=== PATIENT | female | born 1945 | race Caucasian/White ===

== ENCOUNTER 2019-06-03 18:16 | Inpatient (IN) | payer MEDICARE, BC ==
[2019-06-03 20:35] LABS: Hematocrit 30 % (35-47); Hemoglobin 10.3 g/dL (12.0-16.0); Mean Corpuscular HGB Conc 34 g/dL (31-36); Mean Corpuscular Hemoglobin 29 pg (27-31); Mean Corpuscular Volume 86 fL (80-97); Mean Platelet Volume 7.2 fL (7.4-10.4); Platelet Count 190 10^3/uL (150-450); Red Blood Count 3.53 10^6 /uL (3.70-4.87); Red Cell Distribution Width 17 % (10-15)
[2019-06-03 20:49] LABS: Urine Appearance Cloudy; Urine Bilirubin Negative (Negative); Urine Blood 1+ (Negative); Urine Color Yellow; Urine Glucose 1+(50 mg/dL) (Negative); Urine Ketones Negative (Negative); Urine Nitrite Positive (Negative); Urine Protein 1+(30 mg/dL) (Negative); Urine Specific Gravity 1.011 (1.010-1.030); Urine Urobilinogen Negative (Negative)
[2019-06-03 20:52] LABS: Albumin/Globulin Ratio 1.7 (1-3); BUN/Creatinine Ratio 13.9 (8-20); C Reactive Protein 116.37 mg/L (<8.01); Calcium 8.9 mg/dL (8.6-10.3); EGFR African American 36.4 (>60); EGFR Non-African American 30.1 (>60); Globulin 2.4 g/dL (2-4); Potassium 3.3 mmol/L (3.5-5.0); Total Bilirubin 0.4 mg/dL (0.2-1.0); Total Protein 6.4 g/dL (6.4-8.9)
[2019-06-03 20:59] LABS: Urine Appearance Cloudy; Urine Bacteria Absent (Absent); Urine Bilirubin Negative (Negative); Urine Blood 3+ (Negative); Urine Glucose Negative (Negative); Urine Ketones Negative (Negative); Urine Nitrite Negative (Negative); Urine Protein 2+(100 mg/dL) (Negative); Urine Red Blood Cell 3+(>10/hpf) (Absent); Urine Urobilinogen Negative (Negative); Urine White Blood Cell 3+(>20/hpf) (Absent)
[2019-06-03 21:00] LABS: Urine Color Red
[2019-06-03 21:00] LABS: Urine Bacteria Absent (Absent); Urine Red Blood Cell 3+(>10/hpf) (Absent); Urine Squamous Epithelial Cell Present (Absent); Urine White Blood Cell 3+(>20/hpf) (Absent)
[2019-06-03 21:32] LABS: ABS Eosinophils 0.1 10^3/ul (0-0.6); ABS Lymphocytes 0.5 10^3/ul (1.0-4.8); ABS Monocytes 0.2 10^3/ul (0-0.8); ABS Neutrophils 2.3 10^3/ul (1.5-7.7); Eosinophil % 2.7 %; Lymphocyte % 14.7 %
[2019-06-03] MEDS ORDERED: cefTRIAXone(*) 1 GM in NS 0.9% 50 ML* 50 ML IVPB ONE (22:16)
[2019-06-03] MEDS ORDERED: NS 0.9% 1000 ML** 1,000 ML IV ONE (23:53)
--- NOTE | 2019-06-04 01:08 | ED ---
GI/ HPI - HPI Summary HPI Summary: Patient complains of weakness, fatigue, confusion 3 days, fever up to 102.9 at home today. Patient has recent discharge from ICU in [place] for urosepsis. Patient has history of 2 renal tubes since 2007. Denies cough, sore throat, CP , SOB, diarrhea, abdominal pain, change in BM, vaginal symptoms. Medical history is non-Hodgkin's lymphoma, HTN, HDL, DM. Bilateral renal tubes for kidney scarring secondary to non-Hodgkin's lymphoma. Patient recently moved to [place]. Currently seeking providers for healthcare concerns. - History of Current Complaint Chief Complaint: EDGeneral Time Seen by Provider: 06/03/19 19:56 Stated Complaint: GENERAL ILLNESS PER EMS Hx Obtained From: Patient Onset/Duration: Started Days Ago Timing: Constant Severity: Moderate Current Severity: Moderate Pain Intensity: 4 Associated Signs and Symptoms: Positive: Weakness, Nausea, Vomiting, Fever, Change in Appetite, Lightheadedness - Allergy/Home Medications Allergies/Adverse Reactions: Allergies Allergy/AdvReac Type Severity Reaction Status Date / Time plastic tape AdvReac Intermediate Rash Uncoded 06/03/19 18:24 Home Medications: Home Medications Amlodipine Besylate [Amlodipine 2.5 mg tab] 2.5 mg PO DAILY 06/03/19 [History Confirmed 06/03/19] Pantoprazole Sodium 40 mg PO DAILY 06/03/19 [History Confirmed 06/03/19] Rosuvastatin Calcium 40 mg PO DAILY 06/03/19 [History Confirmed 06/03/19] Valacyclovir HCl [Valacyclovir] 500 mg PO DAILY 06/03/19 [History Confirmed 08/21] PMH/Surg Hx/FS Hx/Imm Hx Endocrine/Hematology History: Reports: Hx Diabetes, Other Endocrine/ Hematological Disorders - Follicular lymphoma/non-hodgkin lymphoma Cardiovascular History: Reports: Hx Congestive Heart Failure, Hx Coronary Artery Disease, Hx Hypercholesterolemia, Hx Hypertension, Other Cardiovascular Problems/Disorders - Hx HTN Respiratory History: Denies: Other Respiratory Problems/Disorders GI History: Comment Only: Other GI Disorders - HEMACHROMATOSIS History: Reports: Hx Kidney Stones, Hx Renal Disease - B ureters obstruction , Other Problems/Disorders - Bilat nephrostomy tubes 05/2013 Musculoskeletal History: Reports: Hx Arthritis - BACK Denies: Hx Osteoporosis Sensory History: Reports: Hx Contacts or Glasses Denies: Hx Hearing Aid Opthamlomology History: Reports: Hx Contacts or Glasses Neurological History: Denies: Other Neuro Impairments/Disorders Psychiatric History: Reports: Hx Depression - Cancer History Cancer Type, Location and Year: non-hodgkins lymphoma since 2007 Hx Chemotherapy: Yes Hx Radiation Therapy: Yes - LYMPHOMA AND BREAST CA - Surgical History Surgery Procedure, Year, and Place: bilateral urinary stent placement. APPENDECTOMY, AGE 14. HYSTERECTOMY, AGE 53. LUMPECTOMY LEFT BREAST, 1999, [facility]. 16 CYSTOS WITH STENTS, [facility] Hx Anesthesia Reactions: No Infectious Disease History: No Infectious Disease History: Denies: History Other Infectious Disease, Traveled Outside the [place] in Last 30 Days - Family History Known Family History: Positive: Non-Contributory - Social History Alcohol Use: None Substance Use Type: Reports: None Smoking Status (MU): Former Smoker Amount Used/How Often: 2/ppd Review of Systems Positive: Fever Eyes: Negative ENT: Negative Cardiovascular: Negative Respiratory: Negative Positive: Vomiting, Nausea Positive: other Musculoskeletal: Negative Skin: Negative Positive: Weakness Psychological: Normal All Other Systems Reviewed And Are Negative: Yes Physical Exam - Summary Physical Exam Summary: Patient alert and oriented. Abdomen soft nontender. Red urine in urine from right renal tube. Triage Information Reviewed: Yes Vital Signs On Initial Exam: Initial Vitals Temp Pulse Resp BP Pulse Ox 99.2 F 86 16 137/77 93 06/03/19 18:18 06/03/19 18:18 06/03/19 18:18 06/03/19 18:18 06/03/19 18:18 Vital Signs Reviewed: Yes Appearance: Positive: Well-Appearing Skin: Positive: Warm Head/Face: Positive: Normal Head/Face Inspection Eyes: Positive: Normal Neck: Positive: Supple Respiratory/Lung Sounds: Positive: Clear to Auscultation Cardiovascular: Positive: Normal Abdomen Description: Positive: Nontender Musculoskeletal: Positive: Normal Neurological: Positive: Normal Psychiatric: Positive: Normal AVPU Assessment: Alert - [place] Coma Scale Best Eye Response: 4 - Spontaneous Best Motor Response: 6 - Obeys Commands Best Verbal Response: 5 - Oriented Coma Scale Total: 15 Procedures - Sedation Patient Received Moderate/Deep Sedation with Procedure: No Diagnostics - Vital Signs Vital Signs Temp Pulse Resp BP Pulse Ox 06/03/19 18:18 99.2 F 86 16 137/77 93 - Laboratory Lab Results: Lab Results 12/08/2106/03/19 06/03/19 Range/Units 20:01 20:25 20:25 WBC 3.0 L (3.5-10.8) 10^3/uL RBC 3.53 L (3.70-4.87) 10^6 /uL Hgb 10.3 L (12.0-16.0) g/dL Hct 30 L (35-47) % MCV 86 (80-97) fL MCH 29 (27-31) pg MCHC 34 (31-36) g/dL RDW 17 H (10-15) % Plt Count 190 (150-450) 10^3/uL MPV 7.2 L (7.4-10.4) fL Neut % (Auto) 74.1 % Lymph % (Auto) 14.7 % Lamar % (Auto) 7.0 % Eos % (Auto) 2.7 % Baso % (Auto) 1.5 % Absolute Neuts (auto) 2.3 (1.5-7.7) 10^3/ul Absolute Lymphs (auto) 0.5 L (1.0-4.8) 10^3/ul Absolute Monos (auto) 0.2 (0-0.8) 10^3/ul Absolute Eos (auto) 0.1 (0-0.6) 10^3/ul Absolute Basos (auto) 0.0 (0-0.2) 10^3/ul Absolute Nucleated RBC 0.0 10^3/ul Nucleated RBC % 0.0 Sodium (135-145) mmol/L Potassium (3.5-5.0) mmol/L Chloride (101-111) mmol/L Carbon Dioxide (22-32) mmol/L Anion Gap (2-11) mmol/L BUN (6-24) mg/dL Creatinine (0.51-0.95) mg/dL Est GFR ( Amer) (>60) Est GFR (Non-Af Amer) (>60) BUN/Creatinine Ratio (8-20) Glucose (70-100) mg/dL Lactic Acid (0.5-2.0) mmol/L Calcium (8.6-10.3) mg/dL Total Bilirubin (0.2-1.0) mg/dL AST (13-39) U/L ALT (7-52) U/L Alkaline Phosphatase (34-104) U/L C-Reactive Protein (<8.01) mg/L Total Protein (6.4-8.9) g/dL Albumin (3.2-5.2) g/dL Globulin (2-4) g/dL Albumin/Globulin Ratio (1-3) Urine Color Red A Yellow Urine Appearance Cloudy Cloudy Urine pH 6.0 6.0 (5-9) Ur Specific Delta 1.010 1.011 (1.010-1.030) Urine Protein 2+(100 mg/dl) A 1+(30 mg/dl) A (Negative) Urine Ketones Negative Negative (Negative) Urine Blood 3+ A 1+ A (Negative) Urine Nitrate Negative Positive A (Negative) Urine Bilirubin Negative Negative (Negative) Urine Urobilinogen Negative Negative (Negative) Ur Leukocyte Esterase 3+ A 3+ A (Negative) Urine WBC (Auto) 3+(>20/hpf) A 3+(>20/hpf) A (Absent) Urine RBC (Auto) 3+(>10/hpf) A 3+(>10/hpf) A (Absent) Ur Squamous Epith Cells Present A (Absent) Urine Bacteria Absent Absent (Absent) Urine Yeast Present A (Absent) Urine Glucose Negative 1+(50 mg/dl) A (Negative) 06/03/19 06/03/19 Range/Units 20:25 22:15 WBC (3.5-10.8) 10^3/uL RBC (3.70-4.87) 10^6 /uL Hgb (12.0-16.0) g/dL Hct (35-47) % MCV (80-97) fL MCH (27-31) pg MCHC (31-36) g/dL RDW (10-15) % Plt Count (150-450) 10^3/uL MPV (7.4-10.4) fL Neut % (Auto) % Lymph % (Auto) % Lamar % (Auto) % Eos % (Auto) % Baso % (Auto) % Absolute Neuts (auto) (1.5-7.7) 10^3/ul Absolute Lymphs (auto) (1.0-4.8) 10^3/ul Absolute Monos (auto) (0-0.8) 10^3/ul Absolute Eos (auto) (0-0.6) 10^3/ul Absolute Basos (auto) (0-0.2) 10^3/ul Absolute Nucleated RBC 10^3/ul Nucleated RBC % Sodium 138 (135-145) mmol/L Potassium 3.3 L (3.5-5.0) mmol/L Chloride 108 (101-111) mmol/L Carbon Dioxide 19 L (22-32) mmol/L Anion Gap 11 (2-11) mmol/L BUN 23 (6-24) mg/dL Creatinine 1.66 H (0.51-0.95) mg/dL Est GFR ( Amer) 36.4 (>60) Est GFR (Non-Af Amer) 30.1 (>60) BUN/Creatinine Ratio 13.9 (8-20) Glucose 112 H (70-100) mg/dL Lactic Acid 0.6 (0.5-2.0) mmol/L Calcium 8.9 (8.6-10.3) mg/dL Total Bilirubin 0.40 (0.2-1.0) mg/dL AST 30 (13-39) U/L ALT 20 (7-52) U/L Alkaline Phosphatase 215 H (34-104) U/L C-Reactive Protein 116.37 H (<8.01) mg/L Total Protein 6.4 (6.4-8.9) g/dL Albumin 4.0 (3.2-5.2) g/dL Globulin 2.4 (2-4) g/dL Albumin/Globulin Ratio 1.7 (1-3) Urine Color Urine Appearance Urine pH (5-9) Ur Specific Delta (1.010-1.030) Urine Protein (Negative) Urine Ketones (Negative) Urine Blood (Negative) Urine Nitrate (Negative) Urine Bilirubin (Negative) Urine Urobilinogen (Negative) Ur Leukocyte Esterase (Negative) Urine WBC (Auto) (Absent) Urine RBC (Auto) (Absent) Ur Squamous Epith Cells (Absent) Urine Bacteria (Absent) Urine Yeast (Absent) Urine Glucose (Negative) Result Diagrams: 06/05/19 05:00 06/05/19 05:00 Lab Statement: Any lab studies that have been ordered have been reviewed, and results considered in the medical decision making process. GIGU Course/Dx - Course Course Of Treatment: Patient complains of weakness, fatigue, confusion 3 days, fever up to 102.9 at home today. Patient has recent discharge from ICU in [place] for urosepsis. Patient has history of 2 renal tubes since 2007. Denies cough, sore throat, CP, SOB, diarrhea, abdominal pain, change in BM, vaginal symptoms. Medical history is non-Hodgkin's lymphoma, HTN, HDL, DM. Bilateral renal tubes for kidney scarring secondary to non-Hodgkin's lymphoma. History of recurrent urosepsis. Patient recently moved to [place]. Currently seeking providers for healthcare concerns. Vital signs within normal limits. WBC 3.0. Creatinine 1.66. CRP 116. Alkaline phosphatase 215. UA positive for UTI. CT abdomen and pelvis negative for acute process. Admitted to hospitalist for UTI and history of recurrent urosepsis. - Diagnoses Provider Diagnoses: UTI (urinary tract infection) Discharge ED - Sign-Out/Discharge Documenting (check all that apply): Patient Departure - Discharge Plan Condition: Stable Disposition: ADMITTED TO [facility] - Billing Disposition and Condition Condition: STABLE Disposition: Admitted to [facility]
[2019-06-04] MEDS ORDERED: Acetaminophen TAB* 325 MG PO ONE (01:36)
[2019-06-04] MEDS: NS 0.9% 1000 ML** 1,000 ML IV SCH ×2 (06:53→16:47)
[2019-06-04] MEDS ORDERED: Potassium Chlor TAB* 10 MEQ TAB.ER PO ONE (07:01)
[2019-06-04 07:06] LABS: Hematocrit 30 % (35-47); Hemoglobin 10.2 g/dL (12.0-16.0); Mean Corpuscular HGB Conc 34 g/dL (31-36); Mean Corpuscular Hemoglobin 30 pg (27-31); Mean Corpuscular Volume 87 fL (80-97); Mean Platelet Volume 7.3 fL (7.4-10.4); Platelet Count 186 10^3/uL (150-450); Red Blood Count 3.43 10^6 /uL (3.70-4.87); Red Cell Distribution Width 17 % (10-15)
[2019-06-04 07:24] LABS: BUN/Creatinine Ratio 13.1 (8-20); Calcium 8.7 mg/dL (8.6-10.3); EGFR Non-African American 33.1 (>60); Potassium 3.1 mmol/L (3.5-5.0)
[2019-06-04 07:43] LABS: Magnesium 1.7 mg/dL (1.9-2.7)
[2019-06-04] MEDS ORDERED: Magnesium Sulfate 2 GM IV* 2 GM/50 ML BAG IVPB ONE (08:00)
[2019-06-04 08:20] LABS: ABS Basophils 0.1 10^3/ul (0-0.2); ABS Eosinophils 0.1 10^3/ul (0-0.6); ABS Lymphocytes 0.5 10^3/ul (1.0-4.8); ABS Monocytes 0.2 10^3/ul (0-0.8); ABS Neutrophils 2.2 10^3/ul (1.5-7.7); Eosinophil % 3.3 %; Lymphocyte % 16.2 %
[2019-06-04] MEDS: Pantoprazole TAB * 40 MG TAB PO SCH (08:28)
[2019-06-04] MEDS: amLODIPine TAB* 5 MG PO SCH (08:28)
[2019-06-04] MEDS: ValACYclovir (*) 500 MG TAB PO SCH (08:28)
[2019-06-04] MEDS: buPROPion SR TAB.SR* 150 MG PO SCH (08:29)
[2019-06-04] MEDS: Cetirizine* 10 MG TAB PO SCH (08:29)
[2019-06-04] MEDS: Lactobacillus Acidophilus* 1 TAB PO SCH (08:29)
[2019-06-04] MEDS: Atorvastatin* 80 MG TAB PO SCH (08:29)
[2019-06-04] MEDS: Metoprolol Succinate XL TAB* 25 MG PO SCH (08:29)
--- NOTE | 2019-06-04 08:32 | HP ---
CC: Dr. Kelly Cotter * ADMISSION HISTORY AND PHYSICAL: DATE OF ADMISSION: 06/04/19 PRIMARY CARE PHYSICIAN: Dr. Kelly Cotter, who will be replacing her older doctor Dr. Angelina Miller. CHIEF COMPLAINT: Fever and confusion. HISTORY OF PRESENT ILLNESS: This is a 73-year-old female with past medical history of non-Hodgkin lymphoma, last chemotherapy was in October 2018; history of breast cancer, status post lumpectomy, radiation, and chemo; diabetes; dyslipidemia; congestive heart failure, came in due to confusion. The patient stated that she was in her usual state of health. She also has a history of bilateral nephrostomies after she has had recurrent UTIs and failed ureteral stenting. She came in after she developed some fever today at home, which later progressed to patient having confusion, and she also noted increased bleeding from her right- sided nephrostomy tube. By the time she came into the ER, her fever subsided and so did her confusion. She was noted to have a UTI and is being admitted for concerns of UTI symptoms. She otherwise offers no other chest pain. No shortness of breath. She did have some nausea and had 1 episode of vomiting. No other abdominal pain. No constipation. No diarrhea. No numbness or tingling. She states that she gets her nephrostomy tube changed by a specialist in [place] every 4 weeks, next scheduled change is on 06/11/19. PAST MEDICAL HISTORY: As mentioned, history of non-Hodgkin lymphoma, type 2 diabetes, hypertension, dyslipidemia, and history of left breast cancer, status post lumpectomy and lymph node dissection, radiation, and chemo. Recently diagnosed shingles, on valacyclovir. PAST SURGICAL HISTORY: As mentioned, lumpectomy, had a chemo port placed on the right; appendectomy; tonsillectomy; hysterectomy. HOME MEDICATIONS: 1. Valacyclovir 500 mg oral daily. 2. Rosuvastatin 40 mg oral daily. 3. Pantoprazole 40 mg oral daily. 4. Amlodipine 2.5 mg oral daily. 5. Zyrtec 10 mg oral daily. 6. Bupropion 150 mg p.o. daily. 7. Probiotic 1 tablet oral daily. 8. Metoprolol 25 mg every morning. 9. Metformin 500 mg p.o. b.i.d. 10. Cozaar 25 mg every evening. ALLERGIES: The patient is allergic to PLASTIC TAPE, adverse reaction to FENTANYL. FAMILY HISTORY: Noncontributory. SOCIAL HISTORY: She patient quit smoking in 1999, prior to that a [id number]-afca history of smoking. Rarely drinks any alcohol. Denies any drug use. She is currently retired. Lives with her daughter who is her healthcare proxy. She has already signed a DNR/DNI in 2013 and was willing to sign an updated form today with the same exact limitations as previous. REVIEW OF SYSTEMS: A 14-point review of systems did not reveal any new information other than what is mentioned in the HPI. PHYSICAL EXAMINATION GENERAL: The patients is awake, alert, and oriented x3, did not appear to be in any acute distress. VITAL SIGNS: Temperature was recorded at 99.2; however, T-max was recorded by the ambulance at 100.4 prior to arrival to the ER. BP was noted to be 125/53, heart rate 71, saturating 99% on 2 L nasal cannula, respiratory rate 18. HEAD AND NECK: Atraumatic, normocephalic. Bilateral pupils reactive. Oral mucosa was moist. Neck supple. No jugular venous distention. LUNGS: Clear to auscultation bilaterally. No wheezing, rhonchi or rales. HEART: S1, S2. Regular rate and rhythm. ABDOMEN: Soft, nontender, nondistended. There was some substantial CVA tenderness on the left costophrenic angle compared to right. The right nephrostomy tube was showing hematuria and the left with clear urine. EXTREMITIES: No cyanosis, clubbing, or edema. DIAGNOSTIC STUDIES/LAB DATA: CBC shows leukopenia with white count of 3.0, hemoglobin and hematocrit showing some mild anemia, platelet count is normal. Comprehensive metabolic panel shows some hypokalemia with potassium of 3.3, bicarb minimally decreased at 19, creatinine elevated 1.66 which seems to be her baseline. C-reactive protein elevated at 116. Urinalysis were done twice, one from each nephrostomy tube. The right one was showing some clear-cut hematuria, but was still positive for leuk esterase. The left one was positive for both leuk esterase and nitrite and had some mild microscopic hematuria. CT of the abdomen and pelvis showed bilateral percutaneous nephrostomy tubes, minimal bilateral hydronephrosis and there is bilateral nephrolithiasis, stable colonic diverticulosis without evidence of any acute diverticulitis. New since prior exam is a significant soft tissue density and fat stranding in the retroperitoneum surrounding the aorta and iliac arteries in the presacral region , cannot exclude retroperitoneal fibrosis. IMPRESSION: This is a 73-year-old female who has a history of multiple malignancies and a history of recurrent urinary tract infections, status post nephrostomy tubes, here again with evidence of fever and altered mental status likely secondary to urinary tract infection. 1. Fever secondary to urinary tract infection. 2. Gross hematuria of the right nephrostomy. 3. Chronic kidney disease, stage 3. 4. Hypokalemia. 5. History of dyslipidemia. 6. History of hypertension. 7. History of type 2 diabetes. PLAN: 1. We will consult Urology once they are available to see if the patient would benefit from any changes in the nephrostomy tubes. In the meantime, we will continue the ceftriaxone started in the ER and follow up cultures. The patient seems to be adamant that she wants her nephrostomy tubes to be changed at [place] where she normally gets it changed, but we discussed the need for changing this nephrostomy based on the urology consultation report. In the meantime, we will continue IV hydration, restart home medications with the exception of metformin given her chronic kidney disease. We will just start the patient on insulin sliding scale and check an A1c level. 2. DVT prophylaxis with sequential compression device. 3. Code status: The patient is DNR/DNI. [id number]/[facility] #: [id number] [facility]
[2019-06-04] MEDS ORDERED: Ondansetron INJ* 2 MG/ML VIAL IV PRN (09:43)
[2019-06-04] MEDS: Acetaminophen TAB* 325 MG PO PRN ×2 (13:38→22:11)
--- OUTSIDE RECORDS SUMMARY | 2019-06-04 16:31 | XMS REPORT | Continuity of Care Document ---
:1945 External Reference #:[id number] Author Name Breanne Camargo M.D. (transmitted by agent of provider Anna Love) Address [address] [place] [address] Care Team Providers Name Role Phone Angelina Miller MD - Family Care Team Information Communications Director Medicine Problems Active Problems Provider Date Mixed hyperlipidemia Breanne Camargo M.D. Onset: 09/04/2018 Cardiomyopathy, unspecified Breanne Camargo M.D. Onset: 05/26/2015 Edema Breanne Camargo M.D. Onset: 05/26/2015 Hemochromatosis Breanne Camargo M.D. Onset: 06/17/2014 Type 2 diabetes mellitus Breanne Camargo M.D. Onset: 06/17/2014 Essential hypertension Breanne Camargo M.D. 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 Onset: 06/17/2014 granulomas Social History Type Date Description Comments Sex Unknown Tobacco Use Start: Unknown End: Former Cigarette Smoker Unknown Smoking Status Reviewed: 05/27/19 Former Cigarette Smoker ETOH Use Denies alcohol use Tobacco Use Start: Unknown End: Patient is a former quit in 1999, Unknown smoker smoked 2 ppd x 30 years Recreational Drug Use Denies Drug Use Exercise Type/Frequency Does not exercise Allergies, Adverse Reactions, Alerts Active Allergies Reaction Severity Comments Date NKDA 06/17/2014 Adhesive Tape 05/24/2016 Inactive Allergies Atenolol FATIGUE 09/04/2012 Medications Active Medications SIG Qnty Indications Ordering Date Provider Vascepa 1 by mouth twice 180caps Breanne Camargo, 09/10/2018 0.5gm Capsules a day M.D. Lidocaine apply to affected 60gm Breanne Camargo, 09/04/2018 4% Cream areas as directed M.D. via physician Glipizide take one tablet 90tabs Breanne Rosaer, 09/03/2018 5mg Tablets by mouth twice a M.D. day Amlodipine Besylate 1 by mouth every 90tabs R06.00 Breanne Ashsher, 2015 day M.D. 2.5mg Tablets Losartan Potassium 1 by mouth every 90tabs Anupam Cano, 06/24/2016 50mg day DO FACC Tablets Metoprolol Succinate 1 by mouth every 90tabs Breanne Ashsher, 09/20/2012 ER day, generic form M.D. 25mg Tablets ER 24HR as requested by the patient. Metformin HCL 1/2 by mouth Unknown 500mg/5ML twice a day Solution Bupropion HCL ER (SR) 1 by mouth once Unknown daily 150mg Tablets ER 12HR Pravastatin Sodium 1 tablet daily at 90tabs Breanne Ashsher, 40mg bedtime M.D. Tablets Valacyclovir HCL 1 by mouth every Unknown 500mg day Tablets Ibuprofen 3 by mouth twice Unknown 200mg per day Immunizations Description No Information Available Vital Signs Date Vital Result Comment 05/27/2019 1:58pm Height 64.5 inches 5'4.50" Weight 160.00 lb with shoes Heart Rate 80 /min BP Systolic Sitting 120 mmHg Ra BP Diastolic Sitting 66 mmHg Ra BP Systolic Standing 122 mmHg Ra BP Diastolic Standing 62 mmHg Ra BMI (Body Mass Index) 27.0 kg/m2 Ejection Fraction 45-50% Echo 09/05/18 09/04/2018 10:54am Height 64.5 inches 5'4.50" Weight 171.00 lb no shoes Heart Rate 80 /min BP Systolic Sitting 128 mmHg lue reg cuff BP Diastolic Sitting 64 mmHg lue reg cuff BP Systolic Standing 124 mmHg lue reg cuff BP Diastolic Standing 64 mmHg lue reg cuff Respiratory Rate 22 /min BMI (Body Mass Index) 28.9 kg/m2 Ejection Fraction 50-55% Results Test Acquired Date Facility Test Result H/L Range Note Laboratory test 05/27/2019 [facility] TSH <pending> finding [address] ([place] [address] [employer] [facility]) [phone] Procedures Date Code Description Status 05/27/2019 66158 EKG Tracing & Interpretation Completed Medical Devices Description No Information Available Encounters Description No Information Available Assessments Date Code Description Provider 05/27/2019 Z01.810 Encounter for preprocedural cardiovascular Breanne Camargo M.D. examination 05/27/2019 I42.8 Other cardiomyopathies Breanne Camargo M.D. 05/27/2019 I10 Essential (primary) hypertension Breanne Camargo M.D. 05/27/2019 E83.119 Hemochromatosis, unspecified Breanne Camargo M.D. 05/27/2019 E11.8 Type 2 diabetes mellitus with unspecified Breanne Camargo M.D. complications 05/27/2019 E78.2 Mixed hyperlipidemia Breanne Camargo M.D. 05/27/2019 R53.83 Other fatigue Breanne Camargo M.D. 05/27/2019 R31.0 Gross hematuria Breanne Camargo M.D. Plan of Treatment Future Appointment(s):06/03/2019 2:30 pm - Traveling ECHO 1 at [facility]05/27/2019 - Breanne Camargo M.D.Z01.810 Encounter for preprocedural cardiovascular examinationComments:Cataract sx is low risk, you are in normal rhythmFrom a cardiac standpoint you are in good shape forthis sx.I42.8 Other cardiomyopathiesNew Orders:Echocardiogram, Ordered: Follow up:May, We will call with results. OV 3-6 months and PRN (travels).I10 Essential (primary) hypertensionComments:Well controlled on current meds, continue.E83.119 Hemochromatosis, unspecifiedComments:Aware your current oncologist does not think you have this.E11.8 Type 2 diabetes mellitus with unspecified tuoonngorbluzR85.2 Mixed hyperlipidemiaComments:I agree with the recommendation to change Pravastatin to Rosuvastatin, OK to start now.R53.83 Other fatigueComments:Follow up with primary, could be from recent sepsis.Checking labs.Follow up:We will call with results.R31.0 Gross hematuriaComments:See urology Functional Status Description No Information Available Mental Status Description No Information Available Referrals Description No Information Available
--- OUTSIDE RECORDS SUMMARY | 2019-06-04 16:31 | XMS REPORT | Continuity of Care Document ---
:1945 External Reference #:[id number] Author Name Robert Brennan M.D. Address [address] [place] [address] Care Team Providers Name Role Phone Angelina Miller M.D. - Family Medicine Care Team Information Service Order Dispatcher [phone] Breanne Camargo M.D. - Cardiovascular Care Team Information Service Order Dispatcher [phone] Disease Problems Active Problems Provider Date Diabetes mellitus Robert Brennan M.D. Onset: 05/28/2019 Hypertensive disorder Robert Brennan M.D. Onset: 05/28/2019 Hypercholesterolemia Robert Brennan M.D. Onset: 05/28/2019 Acute urinary tract infection Robert Brennan M.D. Onset: 05/28/2019 Sepsis Robert Brennan M.D. Onset: 05/28/2019 Non-Hodgkin's lymphoma (clinical) Robert Brennan M.D. Onset: 05/28/2019 Neutropenia Robert Brennan M.D. Onset: 05/28/2019 Cough Robert Brennan M.D. 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 Onset: 05/28/2019 Combined form of senile cataract Robert Brennan M.D. Onset: 05/28/2019 Social History Type Date Description Comments Sex Unknown ETOH Use Occasionally consumes alcohol Tobacco Use Start: Unknown End: Patient is a former stopped in 1999 Unknown smoker Recreational Drug Use Denies Drug Use Smoking Status Reviewed: 05/28/19 Patient is a former stopped in 1999 smoker Allergies, Adverse Reactions, Alerts Active Allergies Reaction Severity Comments Date Tape 05/28/2019 Medications Active Medications SIG Qnty Indications Ordering Provider Date Erythromycin apply to all four 1Tube H01.021 Robert Brennan, 05/28/2019 5mg/GM lids at bedtime M.D. Ointment for 2 weeks Glipizide Unknown 10mg Tablets Metformin HCL Unknown 500mg Tablets Pravastatin Sodium Unknown 40mg Tablets Valacyclovir HCL Unknown 500mg Tablets Amlodipine Besylate Unknown 2.5mg Tablets Losartan Potassium Unknown 50mg Tablets Immunizations Description No Information Available Vital Signs Description No Information Available Results Description No Information Available Procedures Description No Information Available Medical Devices Description No Information Available Encounters Description No Information Available Assessments Date Code Description Provider 05/28/2019 H25.813 Combined forms of age-related cataract, Robert Brennan M.D. bilateral 05/28/2019 E11.9 Type 2 diabetes mellitus without Robert Brennan M.D. complications 05/28/2019 H53.022 Refractive amblyopia, left eye Robert Brennan M.D. 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 05/28/2019 H01.024 Squamous blepharitis left upper eyelid Robert Brennan M.D. 05/28/2019 H01.022 Squamous blepharitis right lower eyelid Robert Brennan M.D. 05/28/2019 H01.025 Squamous blepharitis left lower eyelid Robert Brennan M.D. Plan of Treatment 05/28/2019 - Robert Brennan M.D.H25.813 Combined forms of age-related cataract , bilateralComments:Smoking can increase the risk of developing or worsening any eye related disease, as well as affect your overall health. If you are a smoker, we strongly recommend that you quit.If you are not a smoker, we strongly recommend that you do not start. You have been diagnosed with cataracts. They are limiting your vision, and I am unable to improve you with new glasses. Our next step is to schedule Cataract surgery and all necessary appointments, which Jaqueline will do for you. We recommend that you write down any questions you may have and bring them to your preoperative appointment so that Dr. Stokes answer them for you. If you have any questions or concerns, you can reach Jaqueline Peña at .Follow up:For preop exam before surgery.E11.9 Type 2 diabetes mellitus without complicationsComments:You have diabetes. I do not detect any changes in both of your retinas from diabetes at this time. Proper control of your diabetes is important for the health of your eyes. Changes in your eyes from diabetes can happen without symptoms, so it is important that you have your eyes examined. Dr. Brennan has sent a report to your primary care doctor, letting them know there is no damage from the Diabetes in your eyes.H53.022 Refractive amblyopia, left eyeH01.021 Squamous blepharitis right upper eyelidNew Medication:Erythromycin 5 mg/GM - apply to all four lids at bedtime for 2 weeksComments:Dr. Brennan has diagnosed you with Blepharitis. This is common condition and can be managed with a few simple steps each day. -Use a hot compress 1-2 times per day, 10-15 minutes at a time, to help melt down the oils in your eyelids that have hardened. Each time you blink, the glands in the lids are supposed to release a protective oil layer over your tears to help them from evaporating. It is common with Blepharitis that the natural bacteria produced overgrows and hardens in the glands, which does not allow a protective oil layer to coat your tears.-Use artificial tear drops frequently throughout the day. Because the tear film is evaporating quicker than normal, you will need to supplement with tear drops to keep the ocular surface comfortable. -Use a lid scrub to remove debris from the lashes. [employer] is a brand we recommend to use.-Examine your environment. The weather for the area we live in often goes from one extreme to the other, forcing us to use air conditioners and heaters often. This can dry the air in the house out, so sometimes using a humidifier can help your ocular surface as well.H01.024 Squamous blepharitis left upper twqimyI46.022 Squamous blepharitis right lower piyrvbP63.025 Squamous blepharitis left lower eyelid Functional Status Description No Information Available Mental Status Description No Information Available Referrals Description No Information Available
[2019-06-04] MEDS: Losartan TAB* 25 MG PO SCH (16:55)
--- NOTE | 2019-06-04 19:09 | PN ---
Subjective Date of Service: 06/04/19 Interval History: Patient was having fever yesterday of 102 at home. She has 2 nephrostomy tube and changes it every 4 weeks. Since last 3 weeks she noticed red color urine in her right bag and dark color in left. She denies abd pain, nausea and vomiting. She has some bodyache at present. Objective Active Medications: Acetaminophen (Tylenol Tab*) 650 mg PO Q6H PRN PRN Reason: PAIN - MILD Last Admin: 06/04/19 13:38 Dose: 650 mg Amlodipine Besylate (Norvasc Tab*) 2.5 mg PO DAILY [facility] Last Admin: 06/04/19 08:28 Dose: 2.5 mg Atorvastatin Calcium (Lipitor*) 80 mg PO DAILY [facility] Last Admin: 06/04/19 08:29 Dose: 80 mg Bupropion HCl (Wellbutrin Sr Tab*) 150 mg PO QAM [facility] Last Admin: 06/04/19 08:29 Dose: 150 mg Cetirizine HCl (Zyrtec*) 10 mg PO DAILY [facility] Last Admin: 06/04/19 08:29 Dose: 10 mg Sodium Chloride (Ns 0.9% 1000 Ml) 1,000 mls @ 100 mls/hr IV PER RATE [facility] Last Admin: 06/04/19 16:47 Dose: 100 mls/hr Ceftriaxone Sodium 1 gm/ (Sodium Chloride) 50 mls @ 100 mls/hr IVPB Q24H [facility] Lactobacillus Rhamnosus (Lactobacillus Acidophilus*) 1 tab PO DAILY [facility] Last Admin: 06/04/19 08:29 Dose: 1 tab Losartan Potassium (Cozaar Tab*) 25 mg PO QPM [facility] Last Admin: 06/04/19 16:55 Dose: 25 mg Metoprolol Succinate (Toprol Xl Tab*) 25 mg PO QAM [facility] Last Admin: 06/04/19 08:29 Dose: 25 mg Ondansetron HCl (Zofran Inj*) 4 mg IV Q6H PRN PRN Reason: NAUSEA Pantoprazole Sodium (Protonix Tab*) 40 mg PO DAILY [facility] Last Admin: 06/04/19 08:28 Dose: 40 mg Valacyclovir HCl (Valtrex 500 Mg (*)) 500 mg PO DAILY [facility]; Protocol Last Admin: 06/04/19 08:28 Dose: 500 mg Vital Signs - 8 hr 06/04/19 06/04/19 06/04/19 11:15 11:28 15:15 Temperature 97.4 F 99.8 F 99.5 F Pulse Rate 85 78 73 Respiratory 20 20 20 Rate Blood Pressure 124/83 119/60 112/44 (mmHg) O2 Sat by Pulse 98 97 94 Oximetry Oxygen Devices in Use Now: Nasal Cannula Exam: Patient is lying on a bed in supine position and is not in acute dstress. HEENT: Normocephalic and atraumatic. Sclera anicteric. EOMI. PERRLA. Neck: No lymphadenopathy and enlarged thyroid. NO JVD elevation. Lungs: Good respiratory effort and chest expansion. Clear with no added sound. Heart: Normal in rate and rhythm. S1/S2 heard with no murmur, rubs or gallops. Abdomen: Soft, nondistended and nontender. Normal BS heard. 2 nephrostomy tube on bilateral flank. left side was clear urine and right was red. NO CVA tenderness noted Extremities; No swelling, cyanosis or clubbing Neuro: Alert, oriented and coperative. CN intact. Motor nomral and sensation intact. Result Diagrams: 06/04/19 06:55 06/04/19 06:55 Additional Lab and Data: Lab Results 06/03/19 06/03/19 06/03/19 Range/Units 20:01 20:25 20:25 WBC 3.0 L (3.5-10.8) 10^3/uL RBC 3.53 L (3.70-4.87) 10^6 /uL Hgb 10.3 L (12.0-16.0) g/dL Hct 30 L (35-47) % MCV 86 (80-97) fL MCH 29 (27-31) pg MCHC 34 (31-36) g/dL RDW 17 H (10-15) % Plt Count 190 (150-450) 10^3/uL MPV 7.2 L (7.4-10.4) fL Neut % (Auto) 74.1 % Lymph % (Auto) 14.7 % [place] % (Auto) 7.0 % Eos % (Auto) 2.7 % Baso % (Auto) 1.5 % Absolute Neuts (auto) 2.3 (1.5-7.7) 10^3/ul Absolute Lymphs (auto) 0.5 L (1.0-4.8) 10^3/ul Absolute Monos (auto) 0.2 (0-0.8) 10^3/ul Absolute Eos (auto) 0.1 (0-0.6) 10^3/ul Absolute Basos (auto) 0.0 (0-0.2) 10^3/ul Absolute Nucleated RBC 0.0 10^3/ul Nucleated RBC % 0.0 Sodium (135-145) mmol/L Potassium (3.5-5.0) mmol/L Chloride (101-111) mmol/L Carbon Dioxide (22-32) mmol/L Anion Gap (2-11) mmol/L BUN (6-24) mg/dL Creatinine (0.51-0.95) mg/dL Est GFR ( Amer) (>60) Est GFR (Non-Af Amer) (>60) BUN/Creatinine Ratio (8-20) Glucose (70-100) mg/dL Lactic Acid (0.5-2.0) mmol/L Calcium (8.6-10.3) mg/dL Total Bilirubin (0.2-1.0) mg/dL AST (13-39) U/L ALT (7-52) U/L Alkaline Phosphatase (34-104) U/L C-Reactive Protein (<8.01) mg/L Total Protein (6.4-8.9) g/dL Albumin (3.2-5.2) g/dL Globulin (2-4) g/dL Albumin/Globulin Ratio (1-3) Urine Color Red A Yellow Urine Appearance Cloudy Cloudy Urine pH 6.0 6.0 (5-9) Ur Specific [place] 1.010 1.011 (1.010-1.030) Urine Protein 2+(100 mg/dl) A 1+(30 mg/dl) A (Negative) Urine Ketones Negative Negative (Negative) Urine Blood 3+ A 1+ A (Negative) Urine Nitrate Negative Positive A (Negative) Urine Bilirubin Negative Negative (Negative) Urine Urobilinogen Negative Negative (Negative) Ur Leukocyte Esterase 3+ A 3+ A (Negative) Urine WBC (Auto) 3+(>20/hpf) A 3+(>20/hpf) A (Absent) Urine RBC (Auto) 3+(>10/hpf) A 3+(>10/hpf) A (Absent) Ur Squamous Epith Cells Present A (Absent) Urine Bacteria Absent Absent (Absent) Urine Yeast Present A (Absent) Urine Glucose Negative 1+(50 mg/dl) A (Negative) 06/03/19 06/03/19 Range/Units 20:25 22:15 WBC (3.5-10.8) 10^3/uL RBC (3.70-4.87) 10^6 /uL Hgb (12.0-16.0) g/dL Hct (35-47) % MCV (80-97) fL MCH (27-31) pg MCHC (31-36) g/dL RDW (10-15) % Plt Count (150-450) 10^3/uL MPV (7.4-10.4) fL Neut % (Auto) % Lymph % (Auto) % [place] % (Auto) % Eos % (Auto) % Baso % (Auto) % Absolute Neuts (auto) (1.5-7.7) 10^3/ul Absolute Lymphs (auto) (1.0-4.8) 10^3/ul Absolute Monos (auto) (0-0.8) 10^3/ul Absolute Eos (auto) (0-0.6) 10^3/ul Absolute Basos (auto) (0-0.2) 10^3/ul Absolute Nucleated RBC 10^3/ul Nucleated RBC % Sodium 138 (135-145) mmol/L Potassium 3.3 L (3.5-5.0) mmol/L Chloride 108 (101-111) mmol/L Carbon Dioxide 19 L (22-32) mmol/L Anion Gap 11 (2-11) mmol/L BUN 23 (6-24) mg/dL Creatinine 1.66 H (0.51-0.95) mg/dL Est GFR ( Amer) 36.4 (>60) Est GFR (Non-Af Amer) 30.1 (>60) BUN/Creatinine Ratio 13.9 (8-20) Glucose 112 H (70-100) mg/dL Lactic Acid 0.6 (0.5-2.0) mmol/L Calcium 8.9 (8.6-10.3) mg/dL Total Bilirubin 0.40 (0.2-1.0) mg/dL AST 30 (13-39) U/L ALT 20 (7-52) U/L Alkaline Phosphatase 215 H (34-104) U/L C-Reactive Protein 116.37 H (<8.01) mg/L Total Protein 6.4 (6.4-8.9) g/dL Albumin 4.0 (3.2-5.2) g/dL Globulin 2.4 (2-4) g/dL Albumin/Globulin Ratio 1.7 (1-3) Urine Color Urine Appearance Urine pH (5-9) Ur Specific [place] (1.010-1.030) Urine Protein (Negative) Urine Ketones (Negative) Urine Blood (Negative) Urine Nitrate (Negative) Urine Bilirubin (Negative) Urine Urobilinogen (Negative) Ur Leukocyte Esterase (Negative) Urine WBC (Auto) (Absent) Urine RBC (Auto) (Absent) Ur Squamous Epith Cells (Absent) Urine Bacteria (Absent) Urine Yeast (Absent) Urine Glucose (Negative) Assess/Plan/Problems-Billing Assessment: 73 y/o F with h/o NHL s/p chemo s/p b/l nephrostomy tube, left breast Ca s/p radiation, recurrent UTI presents with fever and altered mental status. FOund to have abnormal urinalysis-suspected UTI. On ceftriaxone iv(day 2 on 06/04) - Patient Problems (1) Altered mental status Current Visit: Yes Status: Acute Code(s): R41.82 - ALTERED MENTAL STATUS, UNSPECIFIED SNOMED Code(s): 114151356 Comment: -resolved -secondary to UTI -on Iv ceftriaxone(day 2 on 06/04) (2) UTI (urinary tract infection) Current Visit: Yes Status: Acute Comment: -has bilateral nephrostomy tubes -follows in [place]; was visiting her daughter here. 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) -On ceftriaxone -improving -pending urine culture (3) Hypertension Current Visit: Yes Status: Acute Code(s): I10 - ESSENTIAL (PRIMARY) HYPERTENSION SNOMED Code(s): 16724237 Comment: -Continue amlodipine, losartan and metoprolol (4) Diabetes Current Visit: Yes Status: Acute Code(s): E11.9 - TYPE 2 DIABETES MELLITUS WITHOUT COMPLICATIONS SNOMED Code(s): 78812365 Comment: -will check her glucose tomorrow and continue metformin from tomorrow (5) Leukocytopenia Current Visit: Yes Status: Acute Code(s): D72.819 - DECREASED WHITE BLOOD CELL COUNT, UNSPECIFIED SNOMED Code(s): 32316164 Comment: -has chronic low WBC -recently hospitalized in [facility] in [place] and her WBC was 1.4 -ANC is 2.2 -s/p chemotherapy for NHL (6) Shingles Current Visit: Yes Status: Acute Code(s): B02.9 - ZOSTER WITHOUT COMPLICATIONS SNOMED Code(s): 7282707 Comment: -recently had shingles -continue valacyclovir (7) DVT prophylaxis Current Visit: Yes Status: Acute Code(s): Z29.9 - ENCOUNTER FOR PROPHYLACTIC MEASURES, UNSPECIFIED SNOMED Code(s): 665326358 Comment: -on scd (8) DNR (do not resuscitate) Current Visit: Yes Status: Acute Status and Disposition: inpatient Attending: Maris Cortez Attestation Documenting Resident: Jemal Goodwin Supervising Physician: Maris Cortez Attestation: This service has been performed in part by a resident under the direction of a teaching physician.I, Maris Cortez, performed the service, or was physically present during the critical, or castillo portions of the service, furnished by the resident. I participated in the management of the patient.
[2019-06-04] MEDS ORDERED: cefTRIAXone(*) 1 GM in NS 0.9% 50 ML* 50 ML IVPB SCH (21:00)
[2019-06-05] MEDS: NS 0.9% 1000 ML** 1,000 ML IV SCH ×2 (03:42→14:11)
[2019-06-05 05:11] LABS: Hematocrit 28 % (35-47); Hemoglobin 9.4 g/dL (12.0-16.0); Mean Corpuscular HGB Conc 34 g/dL (31-36); Mean Corpuscular Hemoglobin 29 pg (27-31); Mean Corpuscular Volume 87 fL (80-97); Platelet Count 162 10^3/uL (150-450); Red Cell Distribution Width 17 % (10-15); White Blood Count 2.2 10^3/uL (3.5-10.8)
[2019-06-05 05:32] LABS: BUN/Creatinine Ratio 11.7 (8-20); Calcium 8.4 mg/dL (8.6-10.3); EGFR African American 42.6 (>60); EGFR Non-African American 35.2 (>60); Potassium 3.3 mmol/L (3.5-5.0)
[2019-06-05] MEDS ORDERED: Potassium Chlor TAB* 20 MEQ TAB.ER PO ONE (06:58)
--- NOTE | 2019-06-05 07:27 | PN ---
Subjective Date of Service: 06/05/19 Interval History: HD 3 on 06/05 No acute overnight events vitals stable patient says she feels good. Denies abdominal pain, nausea and vomiting. 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 left side draining light yellow. Objective Active Medications: Acetaminophen (Tylenol Tab*) 650 mg PO Q6H PRN PRN Reason: PAIN - MILD Last Admin: 06/04/19 22:11 Dose: 650 mg Amlodipine Besylate (Norvasc Tab*) 2.5 mg PO DAILY [facility] Last Admin: 06/04/19 08:28 Dose: 2.5 mg Atorvastatin Calcium (Lipitor*) 80 mg PO DAILY [facility] Last Admin: 06/04/19 08:29 Dose: 80 mg Bupropion HCl (Wellbutrin Sr Tab*) 150 mg PO QAM [facility] Last Admin: 06/04/19 08:29 Dose: 150 mg Cetirizine HCl (Zyrtec*) 10 mg PO DAILY [facility] Last Admin: 06/04/19 08:29 Dose: 10 mg Sodium Chloride (Ns 0.9% 1000 Ml) 1,000 mls @ 100 mls/hr IV PER RATE [facility] Last Admin: 06/05/19 03:42 Dose: 100 mls/hr Ceftriaxone Sodium 1 gm/ (Sodium Chloride) 50 mls @ 100 mls/hr IVPB Q24H [facility] Last Admin: 06/04/19 20:51 Dose: 100 mls/hr Lactobacillus Rhamnosus (Lactobacillus Acidophilus*) 1 tab PO DAILY [facility] Last Admin: 06/04/19 08:29 Dose: 1 tab Losartan Potassium (Cozaar Tab*) 25 mg PO QPM [facility] Last Admin: 06/04/19 16:55 Dose: 25 mg Metoprolol Succinate (Toprol Xl Tab*) 25 mg PO QAM [facility] Last Admin: 06/04/19 08:29 Dose: 25 mg Ondansetron HCl (Zofran Inj*) 4 mg IV Q6H PRN PRN Reason: NAUSEA Pantoprazole Sodium (Protonix Tab*) 40 mg PO DAILY [facility] Last Admin: 06/04/19 08:28 Dose: 40 mg Valacyclovir HCl (Valtrex 500 Mg (*)) 500 mg PO DAILY [facility]; Protocol Last Admin: 06/04/19 08:28 Dose: 500 mg Vital Signs - 8 hr 06/05/19 06/05/19 00:08 03:28 Temperature 99.9 F 97.1 F Pulse Rate 71 68 Respiratory 16 16 Rate Blood Pressure 118/36 131/42 (mmHg) O2 Sat by Pulse 96 95 Oximetry Oxygen Devices in Use Now: Nasal Cannula Exam: Patient is lying on a bed in supine position and is not in acute dstress. HEENT: Normocephalic and atraumatic. Sclera anicteric. EOMI. PERRLA. Neck: No lymphadenopathy and enlarged thyroid. NO JVD elevation. Lungs: Good respiratory effort and chest expansion. Clear with no added sound. Heart: Normal in rate and rhythm. S1/S2 heard with no murmur, rubs or gallops. Abdomen: Soft, nondistended and nontender. Normal BS heard. 2 nephrostomy tube on bilateral flank. left side was clear urine and right was red- improving. NO CVA tenderness noted Extremities; No swelling, cyanosis or clubbing Neuro: Alert, oriented and coperative. CN intact. Motor nomral and sensation intact. Result Diagrams: 06/05/19 05:00 06/05/19 05:00 Additional Lab and Data: Lab Results 06/03/19 06/03/19 06/03/19 Range/Units 20:01 20:25 20:25 WBC 3.0 L (3.5-10.8) 10^3/uL RBC 3.53 L (3.70-4.87) 10^6 /uL Hgb 10.3 L (12.0-16.0) g/dL Hct 30 L (35-47) % MCV 86 (80-97) fL MCH 29 (27-31) pg MCHC 34 (31-36) g/dL RDW 17 H (10-15) % Plt Count 190 (150-450) 10^3/uL MPV 7.2 L (7.4-10.4) fL Neut % (Auto) 74.1 % Lymph % (Auto) 14.7 % [place] % (Auto) 7.0 % Eos % (Auto) 2.7 % Baso % (Auto) 1.5 % Absolute Neuts (auto) 2.3 (1.5-7.7) 10^3/ul Absolute Lymphs (auto) 0.5 L (1.0-4.8) 10^3/ul Absolute Monos (auto) 0.2 (0-0.8) 10^3/ul Absolute Eos (auto) 0.1 (0-0.6) 10^3/ul Absolute Basos (auto) 0.0 (0-0.2) 10^3/ul Absolute Nucleated RBC 0.0 10^3/ul Nucleated RBC % 0.0 Sodium (135-145) mmol/L Potassium (3.5-5.0) mmol/L Chloride (101-111) mmol/L Carbon Dioxide (22-32) mmol/L Anion Gap (2-11) mmol/L BUN (6-24) mg/dL Creatinine (0.51-0.95) mg/dL Est GFR ( Amer) (>60) Est GFR (Non-Af Amer) (>60) BUN/Creatinine Ratio (8-20) Glucose (70-100) mg/dL Lactic Acid (0.5-2.0) mmol/L Calcium (8.6-10.3) mg/dL Total Bilirubin (0.2-1.0) mg/dL AST (13-39) U/L ALT (7-52) U/L Alkaline Phosphatase (34-104) U/L C-Reactive Protein (<8.01) mg/L Total Protein (6.4-8.9) g/dL Albumin (3.2-5.2) g/dL Globulin (2-4) g/dL Albumin/Globulin Ratio (1-3) Urine Color Red A Yellow Urine Appearance Cloudy Cloudy Urine pH 6.0 6.0 (5-9) Ur Specific [place] 1.010 1.011 (1.010-1.030) Urine Protein 2+(100 mg/dl) A 1+(30 mg/dl) A (Negative) Urine Ketones Negative Negative (Negative) Urine Blood 3+ A 1+ A (Negative) Urine Nitrate Negative Positive A (Negative) Urine Bilirubin Negative Negative (Negative) Urine Urobilinogen Negative Negative (Negative) Ur Leukocyte Esterase 3+ A 3+ A (Negative) Urine WBC (Auto) 3+(>20/hpf) A 3+(>20/hpf) A (Absent) Urine RBC (Auto) 3+(>10/hpf) A 3+(>10/hpf) A (Absent) Ur Squamous Epith Cells Present A (Absent) Urine Bacteria Absent Absent (Absent) Urine Yeast Present A (Absent) Urine Glucose Negative 1+(50 mg/dl) A (Negative) 06/03/19 06/03/19 Range/Units 20:25 22:15 WBC (3.5-10.8) 10^3/uL RBC (3.70-4.87) 10^6 /uL Hgb (12.0-16.0) g/dL Hct (35-47) % MCV (80-97) fL MCH (27-31) pg MCHC (31-36) g/dL RDW (10-15) % Plt Count (150-450) 10^3/uL MPV (7.4-10.4) fL Neut % (Auto) % Lymph % (Auto) % [place] % (Auto) % Eos % (Auto) % Baso % (Auto) % Absolute Neuts (auto) (1.5-7.7) 10^3/ul Absolute Lymphs (auto) (1.0-4.8) 10^3/ul Absolute Monos (auto) (0-0.8) 10^3/ul Absolute Eos (auto) (0-0.6) 10^3/ul Absolute Basos (auto) (0-0.2) 10^3/ul Absolute Nucleated RBC 10^3/ul Nucleated RBC % Sodium 138 (135-145) mmol/L Potassium 3.3 L (3.5-5.0) mmol/L Chloride 108 (101-111) mmol/L Carbon Dioxide 19 L (22-32) mmol/L Anion Gap 11 (2-11) mmol/L BUN 23 (6-24) mg/dL Creatinine 1.66 H (0.51-0.95) mg/dL Est GFR ( Amer) 36.4 (>60) Est GFR (Non-Af Amer) 30.1 (>60) BUN/Creatinine Ratio 13.9 (8-20) Glucose 112 H (70-100) mg/dL Lactic Acid 0.6 (0.5-2.0) mmol/L Calcium 8.9 (8.6-10.3) mg/dL Total Bilirubin 0.40 (0.2-1.0) mg/dL AST 30 (13-39) U/L ALT 20 (7-52) U/L Alkaline Phosphatase 215 H (34-104) U/L C-Reactive Protein 116.37 H (<8.01) mg/L Total Protein 6.4 (6.4-8.9) g/dL Albumin 4.0 (3.2-5.2) g/dL Globulin 2.4 (2-4) g/dL Albumin/Globulin Ratio 1.7 (1-3) Urine Color Urine Appearance Urine pH (5-9) Ur Specific [place] (1.010-1.030) Urine Protein (Negative) Urine Ketones (Negative) Urine Blood (Negative) Urine Nitrate (Negative) Urine Bilirubin (Negative) Urine Urobilinogen (Negative) Ur Leukocyte Esterase (Negative) Urine WBC (Auto) (Absent) Urine RBC (Auto) (Absent) Ur Squamous Epith Cells (Absent) Urine Bacteria (Absent) Urine Yeast (Absent) Urine Glucose (Negative) Assess/Plan/Problems-Billing Assessment: 73 y/o F with h/o NHL s/p chemo s/p b/l nephrostomy tube, left breast Ca s/p radiation, recurrent UTI presents with fever and altered mental status. FOund to have abnormal urinalysis, Urine culture positive for pseudomonas. Switched to cefepime(day 1 on 06/05). - Patient Problems (1) Altered mental status Current Visit: Yes Status: Acute Code(s): R41.82 - ALTERED MENTAL STATUS, UNSPECIFIED SNOMED Code(s): 223814868 Comment: -resolved -secondary to UTI -switched to cefepime(day 1 on 06/05) (2) UTI (urinary tract infection) Current Visit: Yes Status: Acute Comment: -has bilateral nephrostomy tubes -follows in [place]; was visiting her daughter here. 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) -Urine culture showing pseudomonas- No sensitivity yet, based on previous record pseudo was sensitive to cefepime, zosyn and meropenem -Switched to cefepime(day 1 on 06/05) -improving (3) Hypertension Current Visit: Yes Status: Acute Code(s): I10 - ESSENTIAL (PRIMARY) HYPERTENSION SNOMED Code(s): 83581437 Comment: -Continue amlodipine, losartan -Metoprolol decreased to 12.5 mg given BP being on soft side (4) Diabetes Current Visit: Yes Status: Acute Code(s): E11.9 - TYPE 2 DIABETES MELLITUS WITHOUT COMPLICATIONS SNOMED Code(s): 94706596 Comment: -Continue metformin (5) Leukocytopenia Current Visit: Yes Status: Acute Code(s): D72.819 - DECREASED WHITE BLOOD CELL COUNT, UNSPECIFIED SNOMED Code(s): 50622377 Comment: -has chronic low WBC -recently hospitalized in [facility] in [place] and her WBC was 1.4 -ANC is 2.2 -s/p chemotherapy for NHL -we will monitor it (6) Shingles Current Visit: Yes Status: Acute Code(s): B02.9 - ZOSTER WITHOUT COMPLICATIONS SNOMED Code(s): 3944788 Comment: -recently had shingles -continue valacyclovir (7) DVT prophylaxis Current Visit: Yes Status: Acute Code(s): Z29.9 - ENCOUNTER FOR PROPHYLACTIC MEASURES, UNSPECIFIED SNOMED Code(s): 080745693 Comment: -on scd (8) DNR (do not resuscitate) Current Visit: Yes Status: Acute Status and Disposition: inpatient waiting sensitivity results Attending: Maris Cortez Attestation Documenting Resident: Jemal Goodwin Supervising Physician: Maris Cortez Attestation: This service has been performed in part by a resident under the direction of a teaching physician.I, Maris Cortez, performed the service, or was physically present during the critical, or castillo portions of the service, furnished by the resident. I participated in the management of the patient.
[2019-06-05 07:28] LABS: ABS Eosinophils 0.2 10^3/ul (0-0.6); ABS Lymphocytes 0.4 10^3/ul (1.0-4.8); ABS Monocytes 0.2 10^3/ul (0-0.8); ABS Neutrophils 1.4 10^3/ul (1.5-7.7); Eosinophil % 7.3 %; Lymphocyte % 17.7 %; Nucleated Red Blood Cells % 0.1
[2019-06-05] MEDS: buPROPion SR TAB.SR* 150 MG PO SCH (09:24)
[2019-06-05] MEDS: Metoprolol Succinate XL TAB* 25 MG PO SCH (09:24)
[2019-06-05] MEDS: Lactobacillus Acidophilus* 1 TAB PO SCH (09:24)
[2019-06-05] MEDS: Cetirizine* 10 MG TAB PO SCH (09:24)
[2019-06-05] MEDS: Atorvastatin* 80 MG TAB PO SCH (09:24)
[2019-06-05] MEDS: ValACYclovir (*) 500 MG TAB PO SCH (09:25)
[2019-06-05] MEDS: Pantoprazole TAB * 40 MG TAB PO SCH (09:25)
[2019-06-05] MEDS: amLODIPine TAB* 5 MG PO SCH (09:25)
[2019-06-05] MEDS: Cefepime 2 GM in Dextrose(*) 2 GM/50 ML BAG IV SCH (17:37)
[2019-06-05] MEDS: Losartan TAB* 25 MG PO SCH (17:56)
[2019-06-05] MEDS: Acetaminophen TAB* 325 MG PO PRN (18:38)
[2019-06-05] MEDS: metFORMIN* 500 MG TAB PO SCH (21:04)
[2019-06-06] MEDS: NS 0.9% 1000 ML** 1,000 ML IV SCH ×3 (00:51→17:49)
[2019-06-06] MEDS: Acetaminophen TAB* 325 MG PO PRN ×2 (05:14→19:26)
[2019-06-06] MEDS: Cefepime 2 GM in Dextrose(*) 2 GM/50 ML BAG IV SCH ×2 (05:14→17:49)
[2019-06-06 06:01] LABS: Hematocrit 27 % (35-47); Hemoglobin 8.9 g/dL (12.0-16.0); Mean Corpuscular HGB Conc 33 g/dL (31-36); Mean Corpuscular Hemoglobin 29 pg (27-31); Mean Corpuscular Volume 88 fL (80-97); Mean Platelet Volume 7.4 fL (7.4-10.4); Platelet Count 157 10^3/uL (150-450); Red Blood Count 3.04 10^6 /uL (3.70-4.87); Red Cell Distribution Width 17 % (10-15); White Blood Count 1.9 10^3/uL (3.5-10.8)
[2019-06-06 06:16] LABS: Calcium 8.1 mg/dL (8.6-10.3); EGFR African American 47.9 (>60); EGFR Non-African American 39.6 (>60); Potassium 3.7 mmol/L (3.5-5.0)
[2019-06-06 06:27] LABS: ABS Eosinophils 0.2 10^3/ul (0-0.6); ABS Lymphocytes 0.4 10^3/ul (1.0-4.8); ABS Monocytes 0.2 10^3/ul (0-0.8); ABS Neutrophils 1.2 10^3/ul (1.5-7.7); Eosinophil % 10.3 %; Lymphocyte % 18.9 %; Nucleated Red Blood Cells % 0.1
--- NOTE | 2019-06-06 07:22 | PN ---
Subjective Date of Service: 06/06/19 Interval History: HD 4 on 06/06 No acute overnight events Vitals stable Patient states that she could not sleep last night. Denies anxiety and stress. Denies abdominal pain and nausea and vomiting. She had chemotherapy for NHL; last dose in october: rituxan and bendamustin Since then she had low wbc count. She was recently hospitalized in ICU 1 month in [place] for infection and had low cell count Talked to patient daughter who is concerned that insurance might not cover her iv abx. Objective Active Medications: Acetaminophen (Tylenol Tab*) 650 mg PO Q6H PRN PRN Reason: PAIN - MILD Last Admin: 06/06/19 05:14 Dose: 650 mg Amlodipine Besylate (Norvasc Tab*) 2.5 mg PO DAILY [facility] Last Admin: 06/05/19 09:25 Dose: 2.5 mg Atorvastatin Calcium (Lipitor*) 80 mg PO DAILY [facility] Last Admin: 06/05/19 09:24 Dose: 80 mg Bupropion HCl (Wellbutrin Sr Tab*) 150 mg PO QAM [facility] Last Admin: 06/05/19 09:24 Dose: 150 mg Cetirizine HCl (Zyrtec*) 10 mg PO DAILY [facility] Last Admin: 06/05/19 09:24 Dose: 10 mg Sodium Chloride (Ns 0.9% 1000 Ml) 1,000 mls @ 100 mls/hr IV PER RATE [facility] Last Admin: 06/06/19 00:51 Dose: 100 mls/hr Cefepime HCl (Maxipime 2 Gm In Dextrose Duplex (*)) 2 gm in 50 mls @ 100 mls/ hr IV Q12H [facility] Last Admin: 06/06/19 05:14 Dose: 100 mls/hr Lactobacillus Rhamnosus (Lactobacillus Acidophilus*) 1 tab PO DAILY [facility] Last Admin: 06/05/19 09:24 Dose: 1 tab Losartan Potassium (Cozaar Tab*) 25 mg PO QPM [facility] Last Admin: 06/05/19 17:56 Dose: 25 mg Metformin HCl (Glucophage*) 500 mg PO BID [facility] Last Admin: 06/05/19 21:04 Dose: 500 mg Metoprolol Succinate (Toprol Xl Tab*) 12.5 mg PO QAM [facility] Ondansetron HCl (Zofran Inj*) 4 mg IV Q6H PRN PRN Reason: NAUSEA Pantoprazole Sodium (Protonix Tab*) 40 mg PO DAILY [facility] Last Admin: 06/05/19 09:25 Dose: 40 mg Valacyclovir HCl (Valtrex 500 Mg (*)) 500 mg PO DAILY [facility]; Protocol Last Admin: 06/05/19 09:25 Dose: 500 mg Vital Signs - 8 hr 06/05/19 06/06/19 23:49 03:06 Temperature 98.6 F 98.4 F Pulse Rate 69 69 Respiratory 16 16 Rate Blood Pressure 124/45 140/57 (mmHg) O2 Sat by Pulse 94 94 Oximetry Oxygen Devices in Use Now: Nasal Cannula Exam: Patient is lying on a bed in supine position and is not in acute dstress. HEENT: Normocephalic and atraumatic. Sclera anicteric. EOMI. PERRLA. Neck: No lymphadenopathy and enlarged thyroid. NO JVD elevation. Lungs: Good respiratory effort and chest expansion. Clear with no added sound. Heart: Normal in rate and rhythm. S1/S2 heard with no murmur, rubs or gallops. Abdomen: Soft, nondistended and nontender. Normal BS heard. 2 nephrostomy tube on bilateral flank. left side was clear urine and right was red- improving. NO CVA tenderness noted Extremities; No swelling, cyanosis or clubbing Neuro: Alert, oriented and coperative. CN intact. Motor nomral and sensation intact. Result Diagrams: 06/06/19 05:10 06/06/19 05:10 Additional Lab and Data: Lab Results 06/03/19 06/03/19 06/03/19 Range/Units 20:01 20:25 20:25 WBC 3.0 L (3.5-10.8) 10^3/uL RBC 3.53 L (3.70-4.87) 10^6 /uL Hgb 10.3 L (12.0-16.0) g/dL Hct 30 L (35-47) % MCV 86 (80-97) fL MCH 29 (27-31) pg MCHC 34 (31-36) g/dL RDW 17 H (10-15) % Plt Count 190 (150-450) 10^3/uL MPV 7.2 L (7.4-10.4) fL Neut % (Auto) 74.1 % Lymph % (Auto) 14.7 % Aiken % (Auto) 7.0 % Eos % (Auto) 2.7 % Baso % (Auto) 1.5 % Absolute Neuts (auto) 2.3 (1.5-7.7) 10^3/ul Absolute Lymphs (auto) 0.5 L (1.0-4.8) 10^3/ul Absolute Monos (auto) 0.2 (0-0.8) 10^3/ul Absolute Eos (auto) 0.1 (0-0.6) 10^3/ul Absolute Basos (auto) 0.0 (0-0.2) 10^3/ul Absolute Nucleated RBC 0.0 10^3/ul Nucleated RBC % 0.0 Sodium (135-145) mmol/L Potassium (3.5-5.0) mmol/L Chloride (101-111) mmol/L Carbon Dioxide (22-32) mmol/L Anion Gap (2-11) mmol/L BUN (6-24) mg/dL Creatinine (0.51-0.95) mg/dL Est GFR ( Amer) (>60) Est GFR (Non-Af Amer) (>60) BUN/Creatinine Ratio (8-20) Glucose (70-100) mg/dL Lactic Acid (0.5-2.0) mmol/L Calcium (8.6-10.3) mg/dL Total Bilirubin (0.2-1.0) mg/dL AST (13-39) U/L ALT (7-52) U/L Alkaline Phosphatase (34-104) U/L C-Reactive Protein (<8.01) mg/L Total Protein (6.4-8.9) g/dL Albumin (3.2-5.2) g/dL Globulin (2-4) g/dL Albumin/Globulin Ratio (1-3) Urine Color Red A Yellow Urine Appearance Cloudy Cloudy Urine pH 6.0 6.0 (5-9) Ur Specific Thornton 1.010 1.011 (1.010-1.030) Urine Protein 2+(100 mg/dl) A 1+(30 mg/dl) A (Negative) Urine Ketones Negative Negative (Negative) Urine Blood 3+ A 1+ A (Negative) Urine Nitrate Negative Positive A (Negative) Urine Bilirubin Negative Negative (Negative) Urine Urobilinogen Negative Negative (Negative) Ur Leukocyte Esterase 3+ A 3+ A (Negative) Urine WBC (Auto) 3+(>20/hpf) A 3+(>20/hpf) A (Absent) Urine RBC (Auto) 3+(>10/hpf) A 3+(>10/hpf) A (Absent) Ur Squamous Epith Cells Present A (Absent) Urine Bacteria Absent Absent (Absent) Urine Yeast Present A (Absent) Urine Glucose Negative 1+(50 mg/dl) A (Negative) 06/03/19 06/03/19 Range/Units 20:25 22:15 WBC (3.5-10.8) 10^3/uL RBC (3.70-4.87) 10^6 /uL Hgb (12.0-16.0) g/dL Hct (35-47) % MCV (80-97) fL MCH (27-31) pg MCHC (31-36) g/dL RDW (10-15) % Plt Count (150-450) 10^3/uL MPV (7.4-10.4) fL Neut % (Auto) % Lymph % (Auto) % Aiken % (Auto) % Eos % (Auto) % Baso % (Auto) % Absolute Neuts (auto) (1.5-7.7) 10^3/ul Absolute Lymphs (auto) (1.0-4.8) 10^3/ul Absolute Monos (auto) (0-0.8) 10^3/ul Absolute Eos (auto) (0-0.6) 10^3/ul Absolute Basos (auto) (0-0.2) 10^3/ul Absolute Nucleated RBC 10^3/ul Nucleated RBC % Sodium 138 (135-145) mmol/L Potassium 3.3 L (3.5-5.0) mmol/L Chloride 108 (101-111) mmol/L Carbon Dioxide 19 L (22-32) mmol/L Anion Gap 11 (2-11) mmol/L BUN 23 (6-24) mg/dL Creatinine 1.66 H (0.51-0.95) mg/dL Est GFR ( Amer) 36.4 (>60) Est GFR (Non-Af Amer) 30.1 (>60) BUN/Creatinine Ratio 13.9 (8-20) Glucose 112 H (70-100) mg/dL Lactic Acid 0.6 (0.5-2.0) mmol/L Calcium 8.9 (8.6-10.3) mg/dL Total Bilirubin 0.40 (0.2-1.0) mg/dL AST 30 (13-39) U/L ALT 20 (7-52) U/L Alkaline Phosphatase 215 H (34-104) U/L C-Reactive Protein 116.37 H (<8.01) mg/L Total Protein 6.4 (6.4-8.9) g/dL Albumin 4.0 (3.2-5.2) g/dL Globulin 2.4 (2-4) g/dL Albumin/Globulin Ratio 1.7 (1-3) Urine Color Urine Appearance Urine pH (5-9) Ur Specific Thornton (1.010-1.030) Urine Protein (Negative) Urine Ketones (Negative) Urine Blood (Negative) Urine Nitrate (Negative) Urine Bilirubin (Negative) Urine Urobilinogen (Negative) Ur Leukocyte Esterase (Negative) Urine WBC (Auto) (Absent) Urine RBC (Auto) (Absent) Ur Squamous Epith Cells (Absent) Urine Bacteria (Absent) Urine Yeast (Absent) Urine Glucose (Negative) Assess/Plan/Problems-Billing Assessment: 73 y/o F with h/o NHL s/p chemo s/p b/l nephrostomy tube, left breast Ca s/p radiation, recurrent UTI presents with fever and altered mental status. FOund to have abnormal urinalysis, Urine culture positive for pseudomonas. Switched to cefepime(day 2 on 06/06). - Patient Problems (1) Altered mental status Current Visit: Yes Status: Acute Code(s): R41.82 - ALTERED MENTAL STATUS, UNSPECIFIED SNOMED Code(s): 046809104 Comment: -resolved -secondary to UTI -switched to cefepime(day 1 on 06/06) (2) UTI (urinary tract infection) Current Visit: Yes Status: Acute Comment: -has bilateral nephrostomy tubes -follows in [place]; was visiting her daughter here. 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 Landry and recommends iv cefepime 12 hrly for 2 weeks and patient can fly to [place] and gets tube changed there (3) Hypertension Current Visit: Yes Status: Acute Code(s): I10 - ESSENTIAL (PRIMARY) HYPERTENSION SNOMED Code(s): 80080523 Comment: -Continue losartan -Metoprolol decreased to 12.5 mg given BP being on soft side -Amlodipine on hold (4) Diabetes Current Visit: Yes Status: Acute Code(s): E11.9 - TYPE 2 DIABETES MELLITUS WITHOUT COMPLICATIONS SNOMED Code(s): 43886287 Comment: -Continue metformin (5) Leukocytopenia Current Visit: Yes Status: Acute Code(s): D72.819 - DECREASED WHITE BLOOD CELL COUNT, UNSPECIFIED SNOMED Code(s): 58355617 Comment: -has chronic low WBC -recently hospitalized in ICu in [place] and her WBC was 1.4 -ANC is 1.2- we will keep close eye on it -s/p chemotherapy for NHL- rituxan and bendamustin on october -we will monitor it -on cefepime (6) Shingles Current Visit: Yes Status: Acute Code(s): B02.9 - ZOSTER WITHOUT COMPLICATIONS SNOMED Code(s): 8294248 Comment: -recently had shingles -continue valacyclovir (7) DVT prophylaxis Current Visit: Yes Status: Acute Code(s): Z29.9 - ENCOUNTER FOR PROPHYLACTIC MEASURES, UNSPECIFIED SNOMED Code(s): 722709042 Comment: -on scd (8) DNR (do not resuscitate) Current Visit: Yes Status: Acute Status and Disposition: inpatient needs iv abx for 2 weeks. Pt daughter concerned about insurance not covering iv abx Attestation Documenting Resident: Jemal Goodwin Supervising Physician: Maris Cortez Attending/Supervising Physician Comment: Plan to DC with IV antibiotics through port, which patient has had in the past. Will work with CM team for insurance approval. Appreciate ID recs. Possible that port could be colonized, but unfortunately, blood cultures were not drawn through port before initiation of antibiotics. Pt plans to have nephro tubes replaced again next week. Attestation: This service has been performed in part by a resident under the direction of a teaching physician.I, Maris Cortez, performed the service, or was physically present during the critical, or castillo portions of the service, furnished by the resident. I participated in the management of the patient.
[2019-06-06] MEDS: Pantoprazole TAB * 40 MG TAB PO SCH (09:13)
[2019-06-06] MEDS: ValACYclovir (*) 500 MG TAB PO SCH (09:13)
[2019-06-06] MEDS: Cetirizine* 10 MG TAB PO SCH (09:14)
[2019-06-06] MEDS: amLODIPine TAB* 5 MG PO SCH (09:14)
[2019-06-06] MEDS: buPROPion SR TAB.SR* 150 MG PO SCH (09:14)
[2019-06-06] MEDS: Atorvastatin* 80 MG TAB PO SCH (09:14)
[2019-06-06] MEDS: Lactobacillus Acidophilus* 1 TAB PO SCH (09:14)
[2019-06-06] MEDS: metFORMIN* 500 MG TAB PO SCH ×2 (09:14→20:51)
[2019-06-06] MEDS: Metoprolol Succinate XL TAB* 25 MG PO SCH (09:14)
[2019-06-06] MEDS ORDERED: Melatonin 3 MG TAB PO PRN (09:52)
--- NOTE | 2019-06-06 12:36 | CONS ---
CONSULTATION REPORT: DATE OF CONSULT: 06/06/19 REQUESTING PHYSICIAN: Dr. Cortez. CONSULTING SERVICE: Infectious Disease. REASON FOR CONSULT: Urinary tract infection. IMPRESSION: 1. Bilateral nephrostomy tubes. Urine culture is growing pseudomonas aeruginosa resistant to fluoroquinolone, sensitive to cefepime, Zosyn, meropenem , and aminoglycosides. It is not marked which tube it came from. She does not urinate at all. Since antibiotics, her fevers resolved. I think she had a urinary tract infection and pyelonephritis involving the nephrostomy tube which she has had in the past. 2. Non-Hodgkin lymphoma. Rituxan as recent as October. 3. Type 2 diabetes. 4. Right chest port. 5. Recent shingles, on Valtrex. RECOMMENDATIONS: Continue cefepime 2 grams IV every 12 hours. She will need her nephrostomy tubes changed out which coincidentally is scheduled for the in [place] where she usually has it done. She declines to have it done here. I think the safest way to do it is to have her go home on cefepime 2 grams IV 12 hours which she can continue to infuse and transit to [place] and be on it at the time of tube exchange on the . I ordered cefepime 2 grams IV every 12 hours for home infusion and weekly CBC, CMP, and CRP. She can follow up with me when she is back in [place]. HISTORY OF PRESENT ILLNESS: This is a 73-year-old woman bilateral nephrostomy tubes, prior ureteral stents which had failed and her original drainage issues seems to have risen after non-Hodgkin's lymphoma or therapy. She has regular tube changes in [place] where she lives about half time. She recently was treated for a course of shingles. Then on 06/03/19 and 06/04/19, she developed fever, malaise, change in mental status, and brought to the hospital. Her white count of 3, creatinine of 1.6, CRP 116, blood cultures are not resulted. Urine culture is growing pseudomonas, greater than 100,000 colonies, sensitivities as outlined above. She notes that pseudomonas are usual pathogen that is isolated at times of these infection. She says the right side of tube usually has blood in urine than the left which is the case now. She did have some aching on the right flank the night before her fever started, that has resolved now. Creatinine is down to 1.3 today. The right nephrostomy urinalysis showed protein, leukocyte esterase, blood, white cells. The left tube showed nitrites, blood, leukocyte esterase, white cells. I cannot tell what the culture is from, the urine culture grew pseudomonas, whether it was the left or right but she does not urinate spontaneously. PAST MEDICAL HISTORY: 1. Breast cancer, treated with chemotherapy and radiation. 2. Non-Hodgkin's lymphoma treated most recently in October with Rituxan. 3. Type 2 diabetes. 4. Right chest port. 5. Hyperlipidemia. 6. Shingles. 7. Status post lumpectomy, left breast. 8. Status post appendectomy. 9. Status post tonsillectomy. 10. Status post hysterectomy. MEDICATIONS: 1. Tylenol. 2. Lipitor. 3. Bupropion. 4. Cefepime 2 grams every 12 hours. 5. Cetirizine. 6. Lactobacillus. 7. Losartan. 8. Melatonin. 9. Metformin. 10. Metoprolol. 11. Pantoprazole. 12. Potassium. 13. Valtrex 500 mg daily. ALLERGIES: PLASTIC TAPE and FENTANYL. FAMILY HISTORY: No recurrent infections. SOCIAL HISTORY: She lives in [place] half time with one daughter and [place] half time with the other. Has her medical care in [place]. REVIEW OF SYSTEMS: All negative except as noted above to 12 point review of systems. PHYSICAL EXAM: Vital Signs: Temperature 37, heart rate 70, respiratory rate 16 , blood pressure 118/34, oxygen saturation 95% on room air. General: She is awake, not in distress. Neurologic: She is oriented x3, follows all commands. HEENT: There is no conjunctival hemorrhage. Oropharynx without lesions. Neck is supple without mass. Heart: Regular rate and rhythm without murmurs, rubs, or gallops. Lungs are clear to auscultation bilaterally. Abdomen: Soft, nontender, and nondistended. There is bowel sounds present. Right nephrostomy tube. No erythema around the tube. There is a reddish hue to the urine. Left nephrostomy tube, no erythema around the tube with clear urine. No flank tenderness to palpation. Skin: There is no rash or splinter hemorrhage. Musculoskeletal: There is no spinous tenderness to palpation. DIAGNOSTIC STUDIES/LAB DATA: White blood cell count 1.9, hemoglobin 8.9, platelets 157. Creatinine of 1.3. Please see impression and recommendations outlined above that I discussed with Dr. Cortez. Thanks for asking me to see Ms. Tejeda in consultation. [id number]/[facility] #: [id number] MTDD
[2019-06-06] MEDS: Losartan TAB* 25 MG PO SCH (17:10)
[2019-06-07] MEDS: NS 0.9% 1000 ML** 1,000 ML IV SCH (04:10)
[2019-06-07] MEDS: Cefepime 2 GM in Dextrose(*) 2 GM/50 ML BAG IV SCH ×2 (05:00→17:26)
[2019-06-07 05:14] LABS: Hematocrit 27 % (35-47); Hemoglobin 9.2 g/dL (12.0-16.0); Mean Corpuscular HGB Conc 34 g/dL (31-36); Mean Corpuscular Hemoglobin 30 pg (27-31); Mean Corpuscular Volume 87 fL (80-97); Platelet Count 181 10^3/uL (150-450); Red Cell Distribution Width 17 % (10-15); White Blood Count 1.7 10^3/uL (3.5-10.8)
[2019-06-07 05:27] LABS: BUN/Creatinine Ratio 11.7 (8-20); Calcium 8.4 mg/dL (8.6-10.3); EGFR African American 45.5 (>60); EGFR Non-African American 37.6 (>60); Potassium 3.4 mmol/L (3.5-5.0)
[2019-06-07 06:09] LABS: ABS Eosinophils 0.2 10^3/ul (0-0.6); ABS Lymphocytes 0.3 10^3/ul (1.0-4.8); ABS Monocytes 0.1 10^3/ul (0-0.8); Eosinophil % 11.7 %
[2019-06-07] MEDS ORDERED: Potassium Chlor TAB* 20 MEQ TAB.ER PO ONE (06:49)
[2019-06-07 08:01] LABS: Magnesium 1.5 mg/dL (1.9-2.7)
[2019-06-07] MEDS ORDERED: Magnesium Sulf 4 GM/100 ML IV* 4,000 MG/100 ML BAG IVPB ONE (08:33)
[2019-06-07] MEDS: Cetirizine* 10 MG TAB PO SCH (09:29)
[2019-06-07] MEDS: buPROPion SR TAB.SR* 150 MG PO SCH (09:29)
[2019-06-07] MEDS: Metoprolol Succinate XL TAB* 25 MG PO SCH (09:30)
[2019-06-07] MEDS: Atorvastatin* 80 MG TAB PO SCH (09:30)
[2019-06-07] MEDS: metFORMIN* 500 MG TAB PO SCH (09:31)
[2019-06-07] MEDS: Lactobacillus Acidophilus* 1 TAB PO SCH (09:31)
[2019-06-07] MEDS: ValACYclovir (*) 500 MG TAB PO SCH (09:31)
[2019-06-07] MEDS: Pantoprazole TAB * 40 MG TAB PO SCH (09:31)
[2019-06-07 15:26] VITALS: BP 129/48
--- NOTE | 2019-06-07 15:32 | DS ---
CC: Dr. Nely Lund DISCHARGE SUMMARY: DATE OF ADMISSION: 06/04/19 DATE OF DISCHARGE: 06/07/19 PRIMARY CARE PHYSICIAN: Dr. Nely Lund. PRIMARY DIAGNOSIS: Urinary tract infection with pseudomonas, complicated by current use of nephrostomy tubes bilaterally. SECONDARY DIAGNOSES: 1. History of non-Hodgkin's lymphoma, Rituxan last given in October, still with right chest port. 2. Diabetes type 2. 3. Hypertension. 4. Shingles, on valacyclovir. CONSULTS: Dr. Александр Swanson of Infectious Disease. DISCHARGE MEDICATIONS: 1. Cefepime 2 g IV every 12 hours. 2. Metformin 500 mg twice a day. 3. Metoprolol succinate 12.5 mg daily. 4. Losartan 25 mg daily. 5. Bupropion 150 mg daily. 6. Pantoprazole 40 mg daily. 7. Rosuvastatin 40 mg daily. 8. Valacyclovir 500 mg daily. 9. Ibuprofen 400 mg every 6 hours as needed for pain. 10. Probiotic 1 tablet daily. HISTORY OF PRESENT ILLNESS: Ms. Tejeda is a 73-year-old woman with a history of non- Hodgkin's lymphoma with last chemotherapy in October, still with chest port, complicated by ureteral stenosis, now with bilateral nephrostomy tubes, also history of diabetes, hypertension, history of breast cancer, status post lumpectomy and radiation and chemo, who is presenting with fever and confusion. The patient noticed fever on day of presentation, which progressed to her being slightly confused and noticing increased blood in the urine in her right-sided nephrostomy tube. The fever and altered mental status were brief and resolved before presenting to the emergency room. She states that these symptoms are similar to when she has had pseudomonal UTIs in the past. Denies chest pain, shortness of breath. She did experience 1 episode of nausea and vomiting on day of presentation, but denies abdominal pain, constipation, or diarrhea. She gets her nephrostomy tubes changed by a specialist in [place] every 4 weeks and the next scheduled change is next week. HOSPITAL COURSE: The patient was noted to have leukopenia, hypokalemia, and baseline creatinine. She had gross hematuria in her nephrostomy bags and her urinalysis was concerning for infection. Urology was going to be consulted, but the patient declined urologic intervention this hospitalization as she reports she has appointment next week to have her monthly nephrostomy tube change appointment. She was initiated on ceftriaxone in the emergency room for her likely UTI. The patient continued to feel better throughout hospitalization and was getting her strength back; however, after 2 days, urine culture resulted pseudomonas. Based on prior sensitivities, she was switched to cefepime. The patient felt ready to return home; however, it was noted that her insurance did not cover home antibiotics. She reports in the past she has had to pay out of pocket to receive cefepime through her port when she has had pseudomonal UTIs previously. Plan was made between the patient and ID team for her to get cefepime infusions in clinic while pending her flight back to [place] to continue her care there. It was recommended that the patient continue a total of 2 weeks of cefepime, as her infection should be considered pyelonephritis and is involving the nephrostomy tubes. It was unclear if the patient had bacteremia transiently , as blood cultures were not checked before administering antibiotics, and she had no blood cultures drawn through her port; however, going forward this should be suspected as a source of infection if the patient presents to the hospital in the future. On day of discharge, a complete 10-point review of systems was performed and the patient denied pertinent symptoms. DIAGNOSTIC STUDIES: CBC notable for leukopenia with neutrophils 1.0. The patient reports this could be near her baseline. Hemoglobin 9.2 with MCV 87 near the patient's baseline. BMP with intermittent hypocalcemia and creatinine 1.37, which is her baseline. Urine culture with Pseudomonas aeruginosa resistant to cefazolin, Cipro, levofloxacin; sensitive to cefepime, gentamicin, meropenem and Zosyn. Abdomen and pelvis CT with bilateral percutaneous nephrostomy tubes with minimal bilateral hydronephrosis. There is bilateral nephrolithiasis, stable colonic diverticulosis without evidence for acute diverticulitis. New since her prior exam is a significant soft tissue density and fat stranding of the retroperitoneum surrounding the aorta and iliac arteries and in the presacral region, cannot exclude retroperitoneal fibrosis. DISCHARGE PLAN: The patient will be discharged after her 8 p.m. cefepime infusion and she will continue to have infusions in ID clinic every 12 hours up until her flight back to [place] where she plans to present immediately to her long-term providers there who have been managing her prior UTIs with IV cefepime as well as exchange of her nephrostomy tubes each month. The patient's blood pressure medications were adjusted given frequently low normal blood pressures in the hospital. Her amlodipine 2.5 was discontinued and her metoprolol succinate was decreased to 12.5 mg daily. She was continued on her home ARB. She should eat a healthy diet, low in processed foods and resume activity as tolerated. Her and her family were educated on return precautions, which include but are not limited to recurrent fever and altered mental status or new symptoms of flank pain, chills, and abdominal pain, or new symptom of profuse watery diarrhea. DISPOSITION: Home. CONDITION: Improved. TIME SPENT: Approximately 60 minutes was spent on discharge of this patient, more than half of which was spent with care coordination at bedside for interview and exam. [id number]/[facility] #: [id number] ARIELLE
--- NOTE | 2019-06-07 15:45 | PN ---
Subjective Date of Service: 06/07/19 Interval History: HD 5 on 06/07 No acute overnight events vitals stable Patient says she feels good but little tired. She denies fever, abdominal pain and nausea and vomiting Objective Active Medications: Acetaminophen (Tylenol Tab*) 650 mg PO Q6H PRN PRN Reason: PAIN - MILD Last Admin: 06/06/19 19:26 Dose: 650 mg Atorvastatin Calcium (Lipitor*) 80 mg PO DAILY [facility] Last Admin: 06/07/19 09:30 Dose: 80 mg Bupropion HCl (Wellbutrin Sr Tab*) 150 mg PO QAM [facility] Last Admin: 06/07/19 09:29 Dose: 150 mg Cetirizine HCl (Zyrtec*) 10 mg PO DAILY [facility] Last Admin: 06/07/19 09:29 Dose: 10 mg Sodium Chloride (Ns 0.9% 1000 Ml) 1,000 mls @ 100 mls/hr IV PER RATE [facility] Last Admin: 06/07/19 04:10 Dose: 100 mls/hr Cefepime HCl (Maxipime 2 Gm In Dextrose Duplex (*)) 2 gm in 50 mls @ 100 mls/ hr IV Q12H [facility] Last Admin: 06/07/19 05:00 Dose: 100 mls/hr Lactobacillus Rhamnosus (Lactobacillus Acidophilus*) 1 tab PO DAILY [facility] Last Admin: 06/07/19 09:31 Dose: 1 tab Losartan Potassium (Cozaar Tab*) 25 mg PO QPM [facility] Last Admin: 06/06/19 17:10 Dose: 25 mg Melatonin (Melatonin) 3 mg PO BEDTIME PRN PRN Reason: INSOMNIA Last Admin: 06/06/19 20:51 Dose: 3 mg Metformin HCl (Glucophage*) 500 mg PO BID [facility] Last Admin: 06/07/19 09:31 Dose: 500 mg Metoprolol Succinate (Toprol Xl Tab*) 12.5 mg PO QAM [facility] Last Admin: 06/07/19 09:30 Dose: 12.5 mg Ondansetron HCl (Zofran Inj*) 4 mg IV Q6H PRN PRN Reason: NAUSEA Pantoprazole Sodium (Protonix Tab*) 40 mg PO DAILY [facility] Last Admin: 06/07/19 09:31 Dose: 40 mg Valacyclovir HCl (Valtrex 500 Mg (*)) 500 mg PO DAILY [facility]; Protocol Last Admin: 06/07/19 09:31 Dose: 500 mg Vital Signs - 8 hr 06/07/19 06/07/19 11:15 15:15 Temperature 97.6 F 97.8 F Pulse Rate 70 70 Respiratory 20 16 Rate Blood Pressure 115/74 129/48 (mmHg) O2 Sat by Pulse 98 98 Oximetry Oxygen Devices in Use Now: Nasal Cannula Exam: Patient is lying on a bed in supine position and is not in acute dstress. HEENT: Normocephalic and atraumatic. Sclera anicteric. EOMI. PERRLA. Neck: No lymphadenopathy and enlarged thyroid. NO JVD elevation. Lungs: Good respiratory effort and chest expansion. Clear with no added sound. Heart: Normal in rate and rhythm. S1/S2 heard with no murmur, rubs or gallops. Abdomen: Soft, nondistended and nontender. Normal BS heard. 2 nephrostomy tube on bilateral flank. left side was clear urine and right was red- improving. NO CVA tenderness noted Extremities; No swelling, cyanosis or clubbing Neuro: Alert, oriented and coperative. CN intact. Motor nomral and sensation intact. Result Diagrams: 06/07/19 04:54 06/07/19 04:54 Additional Lab and Data: Lab Results 06/03/19 06/03/19 06/03/19 Range/Units 20:01 20:25 20:25 WBC 3.0 L (3.5-10.8) 10^3/uL RBC 3.53 L (3.70-4.87) 10^6 /uL Hgb 10.3 L (12.0-16.0) g/dL Hct 30 L (35-47) % MCV 86 (80-97) fL MCH 29 (27-31) pg MCHC 34 (31-36) g/dL RDW 17 H (10-15) % Plt Count 190 (150-450) 10^3/uL MPV 7.2 L (7.4-10.4) fL Neut % (Auto) 74.1 % Lymph % (Auto) 14.7 % [place] % (Auto) 7.0 % Eos % (Auto) 2.7 % Baso % (Auto) 1.5 % Absolute Neuts (auto) 2.3 (1.5-7.7) 10^3/ul Absolute Lymphs (auto) 0.5 L (1.0-4.8) 10^3/ul Absolute Monos (auto) 0.2 (0-0.8) 10^3/ul Absolute Eos (auto) 0.1 (0-0.6) 10^3/ul Absolute Basos (auto) 0.0 (0-0.2) 10^3/ul Absolute Nucleated RBC 0.0 10^3/ul Nucleated RBC % 0.0 Sodium (135-145) mmol/L Potassium (3.5-5.0) mmol/L Chloride (101-111) mmol/L Carbon Dioxide (22-32) mmol/L Anion Gap (2-11) mmol/L BUN (6-24) mg/dL Creatinine (0.51-0.95) mg/dL Est GFR ( Amer) (>60) Est GFR (Non-Af Amer) (>60) BUN/Creatinine Ratio (8-20) Glucose (70-100) mg/dL Lactic Acid (0.5-2.0) mmol/L Calcium (8.6-10.3) mg/dL Total Bilirubin (0.2-1.0) mg/dL AST (13-39) U/L ALT (7-52) U/L Alkaline Phosphatase (34-104) U/L C-Reactive Protein (<8.01) mg/L Total Protein (6.4-8.9) g/dL Albumin (3.2-5.2) g/dL Globulin (2-4) g/dL Albumin/Globulin Ratio (1-3) Urine Color Red A Yellow Urine Appearance Cloudy Cloudy Urine pH 6.0 6.0 (5-9) Ur Specific [place] 1.010 1.011 (1.010-1.030) Urine Protein 2+(100 mg/dl) A 1+(30 mg/dl) A (Negative) Urine Ketones Negative Negative (Negative) Urine Blood 3+ A 1+ A (Negative) Urine Nitrate Negative Positive A (Negative) Urine Bilirubin Negative Negative (Negative) Urine Urobilinogen Negative Negative (Negative) Ur Leukocyte Esterase 3+ A 3+ A (Negative) Urine WBC (Auto) 3+(>20/hpf) A 3+(>20/hpf) A (Absent) Urine RBC (Auto) 3+(>10/hpf) A 3+(>10/hpf) A (Absent) Ur Squamous Epith Cells Present A (Absent) Urine Bacteria Absent Absent (Absent) Urine Yeast Present A (Absent) Urine Glucose Negative 1+(50 mg/dl) A (Negative) 06/03/19 06/03/19 Range/Units 20:25 22:15 WBC (3.5-10.8) 10^3/uL RBC (3.70-4.87) 10^6 /uL Hgb (12.0-16.0) g/dL Hct (35-47) % MCV (80-97) fL MCH (27-31) pg MCHC (31-36) g/dL RDW (10-15) % Plt Count (150-450) 10^3/uL MPV (7.4-10.4) fL Neut % (Auto) % Lymph % (Auto) % [place] % (Auto) % Eos % (Auto) % Baso % (Auto) % Absolute Neuts (auto) (1.5-7.7) 10^3/ul Absolute Lymphs (auto) (1.0-4.8) 10^3/ul Absolute Monos (auto) (0-0.8) 10^3/ul Absolute Eos (auto) (0-0.6) 10^3/ul Absolute Basos (auto) (0-0.2) 10^3/ul Absolute Nucleated RBC 10^3/ul Nucleated RBC % Sodium 138 (135-145) mmol/L Potassium 3.3 L (3.5-5.0) mmol/L Chloride 108 (101-111) mmol/L Carbon Dioxide 19 L (22-32) mmol/L Anion Gap 11 (2-11) mmol/L BUN 23 (6-24) mg/dL Creatinine 1.66 H (0.51-0.95) mg/dL Est GFR ( Amer) 36.4 (>60) Est GFR (Non-Af Amer) 30.1 (>60) BUN/Creatinine Ratio 13.9 (8-20) Glucose 112 H (70-100) mg/dL Lactic Acid 0.6 (0.5-2.0) mmol/L Calcium 8.9 (8.6-10.3) mg/dL Total Bilirubin 0.40 (0.2-1.0) mg/dL AST 30 (13-39) U/L ALT 20 (7-52) U/L Alkaline Phosphatase 215 H (34-104) U/L C-Reactive Protein 116.37 H (<8.01) mg/L Total Protein 6.4 (6.4-8.9) g/dL Albumin 4.0 (3.2-5.2) g/dL Globulin 2.4 (2-4) g/dL Albumin/Globulin Ratio 1.7 (1-3) Urine Color Urine Appearance Urine pH (5-9) Ur Specific [place] (1.010-1.030) Urine Protein (Negative) Urine Ketones (Negative) Urine Blood (Negative) Urine Nitrate (Negative) Urine Bilirubin (Negative) Urine Urobilinogen (Negative) Ur Leukocyte Esterase (Negative) Urine WBC (Auto) (Absent) Urine RBC (Auto) (Absent) Ur Squamous Epith Cells (Absent) Urine Bacteria (Absent) Urine Yeast (Absent) Urine Glucose (Negative) Assess/Plan/Problems-Billing Assessment: 73 y/o F with h/o NHL s/p chemo s/p b/l nephrostomy tube, left breast Ca s/p radiation, recurrent UTI presents with fever and altered mental status. FOund to have abnormal urinalysis, Urine culture positive for pseudomonas. Switched to cefepime(day 3 on 06/07). - Patient Problems (1) Altered mental status Current Visit: Yes Status: Acute Code(s): R41.82 - ALTERED MENTAL STATUS, UNSPECIFIED SNOMED Code(s): 459553690 Comment: -resolved -secondary to UTI -switched to cefepime(day 3 on 06/07) (2) UTI (urinary tract infection) Current Visit: Yes Status: Acute Comment: -has bilateral nephrostomy tubes -follows Dr in [place]; was visiting her daughter here. 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 Landry and recommends iv cefepime 12 hrly for 2 weeks and patient can fly to [place] and gets tube changed there (3) Hypertension Current Visit: Yes Status: Acute Code(s): I10 - ESSENTIAL (PRIMARY) HYPERTENSION SNOMED Code(s): 02201595 Comment: -Continue losartan -Metoprolol decreased to 12.5 mg given BP being on soft side -Amlodipine on hold (4) Diabetes Current Visit: Yes Status: Acute Code(s): E11.9 - TYPE 2 DIABETES MELLITUS WITHOUT COMPLICATIONS SNOMED Code(s): 30788435 Comment: -Continue metformin (5) Leukocytopenia Current Visit: Yes Status: Acute Code(s): D72.819 - DECREASED WHITE BLOOD CELL COUNT, UNSPECIFIED SNOMED Code(s): 29669154 Comment: -has chronic low WBC -recently hospitalized in [facility] in [place] and her WBC was 1.4 -ANC is 1.2- we will keep close eye on it -s/p chemotherapy for NHL- rituxan and bendamustin on october -we will monitor it -on cefepime (6) Shingles Current Visit: Yes Status: Acute Code(s): B02.9 - ZOSTER WITHOUT COMPLICATIONS SNOMED Code(s): 4419272 Comment: -recently had shingles -continue valacyclovir (7) DVT prophylaxis Current Visit: Yes Status: Acute Code(s): Z29.9 - ENCOUNTER FOR PROPHYLACTIC MEASURES, UNSPECIFIED SNOMED Code(s): 110498583 Comment: -on scd (8) DNR (do not resuscitate) Current Visit: Yes Status: Acute Status and Disposition: inpatient needs iv abx for 2 weeks. Attending: Maris Cortez Attestation Documenting Resident: Jemal Goodwin Supervising Physician: Maris Cortez Attestation: This service has been performed in part by a resident under the direction of a teaching physician.I, Maris Cortez, performed the service, or was physically present during the critical, or castillo portions of the service, furnished by the resident. I participated in the management of the patient.
[2019-06-07] MEDS: Losartan TAB* 25 MG PO SCH (17:26)
[2019-06-07] MEDS: Acetaminophen TAB* 325 MG PO PRN (17:56)
== END 2019-06-07 18:30 | disposition home or self-care (01) | DRG 699 ==
LOC: ED 18:16 → MEDTELE 06-04 04:35
PROVIDERS: ADMIT Internal Medicine; ATTEND Internal Medicine
DX: N99.521 Infection of incontinent external stoma of urinary tract (principal); C82.90 Follicular lymphoma, unspecified, unspecified site; I13.0 Hypertensive heart and chronic kidney disease with heart failure and stage 1 through stage 4 chronic kidney disease, or unspecified chronic kidney disease; Z16.23 Resistance to quinolones and fluoroquinolones; N13.6 Pyonephrosis; B96.5 Pseudomonas (aeruginosa) (mallei) (pseudomallei) as the cause of diseases classified elsewhere; I50.9 Heart failure, unspecified; Y65.8 Other specified misadventures during surgical and medical care; Z96.0 Presence of urogenital implants; E78.5 Hyperlipidemia, unspecified; Z66 Do not resuscitate; R31.0 Gross hematuria; N18.3 Chronic kidney disease, stage 3 (moderate); E11.22 Type 2 diabetes mellitus with diabetic chronic kidney disease; D64.9 Anemia, unspecified; E87.6 Hypokalemia; N20.0 Calculus of kidney; B02.9 Zoster without complications; I25.10 Atherosclerotic heart disease of native coronary artery without angina pectoris; E78.00 Pure hypercholesterolemia, unspecified; Z88.8 Allergy status to other drugs, medicaments and biological substances; Y92.9 Unspecified place or not applicable; Z87.442 Personal history of urinary calculi; Z87.891 Personal history of nicotine dependence; Z85.3 Personal history of malignant neoplasm of breast; Z88.6 Allergy status to analgesic agent; Z92.21 Personal history of antineoplastic chemotherapy; Z92.3 Personal history of irradiation; Z79.84 Long term (current) use of oral hypoglycemic drugs; Z79.899 Other long term (current) drug therapy
CPT/HCPCS: 36415; 74176; 80048; 80053; 81003; 81015; 83036; 83605; 83735; 85025; 85060; 86140; 87077; 87086; 87186; 96374; 99284; A9270-GY; J0692; J0696; J3475

== ENCOUNTER 2019-07-05 16:44 | Inpatient (IN) | payer MEDICARE, BC ==
--- OUTSIDE RECORDS SUMMARY | 2019-07-05 17:20 | XMS REPORT ---
:1945 Author Organization [facility] Care Team Providers Name Role Phone Unavailable Unavailable Unavailable Problems This patient has no known problems. Allergies, Adverse Reactions, Alerts Allergy Allergy Type Status Severity Reaction(s) Onset Inactive Treating Comments Name Date Date Clinician plastic Unknown Active Unknown Reaction 2018-07 Interface tape Unknown 08-07 fentanyl Base Active Unknown Reaction 2018-07 Alana Beam Ingredient Unknown 06 Medications Ordered Filled Start Stop Current Ordering Indication Dosage Frequency Signature Comments Components Medication Medication Date Date Medication? Clinician (SIG) Name Name metoprolol metoprolol No Unknown Unknown Unknown succinate succinate 3-25 ER 25 mg ER 25 mg tablet,exte tablet,exte nded nded release 24 release 24 hr hr cetirizine cetirizine No Unknown Unknown Unknown 10 mg 10 mg 6-13 tablet tablet Bupropion Bupropion No Unknown Unknown Unknown Hcl Hcl 6-13 Metformin Metformin No Unknown Unknown Unknown Hcl Hcl 6-13 Procedures This patient has no known procedures. Results This patient has no known results.
--- OUTSIDE RECORDS SUMMARY | 2019-07-05 17:20 | XMS REPORT ---
:1945 Author Organization [facility] Care Team Providers Name Role Phone Unavailable [...]
--- OUTSIDE RECORDS SUMMARY | 2019-07-05 17:20 | XMS REPORT ---
:1945 Author Organization [facility] Care Team Providers Name Role Phone Unavailable Unavailable Unavailable Problems This patient has no known problems. Allergies, Adverse Reactions, Alerts Allergy Allergy Status Severity Reaction(s) Onset Inactive Treating Comments Name Type Date Date Clinician plastic Unknown Active Unknown Reaction 2019-06 Interface tape Unknown -05 Medications Ordered Filled Start Stop Current Ordering [...]
[2019-07-05] MEDS ORDERED: NS 0.9% 1000 ML** 1,000 ML IV ONE (18:29)
[2019-07-05] MEDS ORDERED: Cefepime(*) 2 GM in NS 0.9% 50 ML* 50 ML IVPB ONE (18:50)
--- NOTE | 2019-07-05 18:51 | ED ---
Influenza-Like Illness - HPI Summary HPI Summary: Patient with history of non-Hodgkin's lymphoma receiving chemotherapy treatment and bilateral nephrostomy tubes with recurrent UTIs, complains of symptoms starting today consistent with UTI onset including joint pain, fatigue. Also complains of chronic right lower quadrant pain, hematuria in urine from right side nephrostomy. Patient was advised by infectious disease doctor in [place] to come to the ED for IV antibiotics. Dr. Logan received a call from I&D Dr. Snyder recommending admission today for IV antibiotics. Per urine cultures taken 3 days ago here at [facility] patient is positive for enterococcus, Pseudomonas and Klebsiella. Denies fever, cough, sore throat, CP, SOB, N/V/D, change in BM, vaginal symptoms. Medical history is HTN, DM. Patient lives in both [place] and [place], has providers in both places. - History of Current Complaint Chief Complaint: EDUrogenitalProblems Time Seen by Provider: 07/05/19 18:23 Hx Obtained From: Patient Onset/Duration: Sudden Onset Severity: Moderate Associated Signs & Symptoms: Myalgia - Allergy/Home Medications Allergies/Adverse Reactions: Allergies Allergy/AdvReac Type Severity Reaction Status Date / Time Adhesive Tape [Plastic Tape] AdvReac Intermediate Rash Verified 07/06/19 02:30 Home Medications: Home Medications Amlodipine 2.5 mg TAB (NF) 2.5 mg PO QPM 07/05/19 [History Confirmed 07/05/19] Metoprolol Succinate XL TAB* [Toprol XL TAB*] 25 mg PO QAM 07/05/19 [History Confirmed 07/05/19] Pantoprazole TAB * [Protonix TAB*] 40 mg PO QAM 07/05/19 [History Confirmed 09/19] Rosuvastatin (NF) [Crestor (NF)] 40 mg PO QPM 07/05/19 [History Confirmed ] ValACYclovir (*) [Valtrex 500 mg (*)] 500 mg PO DAILY 07/05/19 [History Confirmed 07/05/19] buPROPion SR TAB* [Wellbutrin SR TAB*] 150 mg PO QAM 07/05/19 [History Confirmed 07/05/19] glipiZIDE TAB.XL* [Glucotrol XL*] 10 mg PO BID 07/05/19 [History Confirmed 07/05] metFORMIN* [Glucophage 500 MG TAB *] 500 mg PO BID 07/05/19 [History Confirmed 07/05/19] PMH/Surg Hx/FS Hx/Imm Hx Endocrine/Hematology History: Reports: Hx Diabetes, Other Endocrine/ Hematological Disorders - Follicular lymphoma/non-hodgkin lymphoma Cardiovascular History: Reports: Hx Congestive Heart Failure, Hx Coronary Artery Disease, Hx Hypercholesterolemia, Hx Hypertension, Other Cardiovascular Problems/Disorders - Hx HTN Respiratory History: Denies: Other Respiratory Problems/Disorders GI History: Comment Only: Other GI Disorders - HEMACHROMATOSIS History: Reports: Hx Kidney Stones, Hx Renal Disease - B ureters obstruction , Other Problems/Disorders - Bilat nephrostomy tubes 05/2013 Musculoskeletal History: Reports: Hx Arthritis - BACK Denies: Hx Osteoporosis Sensory History: Reports: Hx Contacts or Glasses Denies: Hx Hearing Aid Opthamlomology History: Reports: Hx Contacts or Glasses EENT History: Denies: Hx Deafness Neurological History: Denies: Other Neuro Impairments/Disorders Psychiatric History: Reports: Hx Depression - Cancer History Cancer Type, Location and Year: non-hodgkins lymphoma since 2007 Hx Chemotherapy: Yes Hx Radiation Therapy: Yes - LYMPHOMA AND BREAST CA - Surgical History Surgery Procedure, Year, and Place: bilateral urinary stent placement. APPENDECTOMY, AGE 14. HYSTERECTOMY, AGE 53. LUMPECTOMY LEFT BREAST, 1999, [facility]. 16 CYSTOS WITH STENTS, [facility] Hx Anesthesia Reactions: No Infectious Disease History: No Infectious Disease History: Denies: History Other Infectious Disease, Traveled Outside the [place] in Last 30 Days - Family History Known Family History: Positive: Non-Contributory - Social History Alcohol Use: Rare Substance Use Type: Reports: None Smoking Status (MU): Former Smoker Amount Used/How Often: 2/ppd Review of Systems Positive: Fatigue Eyes: Negative ENT: Negative Cardiovascular: Negative Respiratory: Negative Positive: Abdominal Pain Genitourinary: Negative Positive: Arthralgia Skin: Negative Neurological: Negative Psychological: Normal All Other Systems Reviewed And Are Negative: Yes Physical Exam - Summary Physical Exam Summary: Bilateral nephrostomies flushing and draining per nurse. Triage Information Reviewed: Yes Vital Signs On Initial Exam: Initial Vitals Temp Pulse Resp BP Pulse Ox 98.5 F 86 18 148/51 99 07/05/19 16:48 07/05/19 16:48 07/05/19 16:48 07/05/19 16:48 07/05/19 16:48 Vital Signs Reviewed: Yes Appearance: Positive: Well-Appearing Skin: Positive: Warm Head/Face: Positive: Normal Head/Face Inspection Eyes: Positive: Normal Neck: Positive: Supple Respiratory/Lung Sounds: Positive: Clear to Auscultation Cardiovascular: Positive: Normal Abdomen Description: Positive: Nontender Musculoskeletal: Positive: Normal Neurological: Positive: Normal Psychiatric: Positive: Normal AVPU Assessment: Alert - Adia Coma Scale Best Eye Response: 4 - Spontaneous Best Motor Response: 6 - Obeys Commands Best Verbal Response: 5 - Oriented Coma Scale Total: 15 Procedures - Sedation Patient Received Moderate/Deep Sedation with Procedure: No Diagnostics - Vital Signs Vital Signs Temp Pulse Resp BP Pulse Ox 07/05/19 18:34 99.7 F 83 96 07/05/19 16:48 98.5 F 86 18 148/51 99 - Laboratory Result Diagrams: 07/06/19 04:04 07/06/19 04:49 Lab Statement: Any lab studies that have been ordered have been reviewed, and results considered in the medical decision making process. Flu Symptom Course/Dx - Course Course Of Treatment: Patient with history of non-Hodgkin's lymphoma receiving chemotherapy treatment and bilateral nephrostomy tubes with recurrent UTIs, complains of symptoms starting today consistent with UTI onset including joint pain, fatigue. Also complains of chronic right lower quadrant pain, hematuria in urine from right side nephrostomy. Patient was advised by infectious disease doctor in [place] to come to the ED for IV antibiotics. Dr. Logan received a call from I&D Dr. Snyder recommending admission today for IV antibiotics. Per urine cultures taken 3 days ago here at [facility] patient is positive for enterococcus, Pseudomonas and Klebsiella. Denies fever, cough, sore throat, CP, SOB, N/V/D, change in BM, vaginal symptoms. Medical history is HTN, DM. Patient lives in both [place] and [place], has providers in both places. Vital signs within normal limits. Labs consistent with patient baseline. Urine positive nitrates, 2+ leuks, 1+ WBC, 1+ bacteria. Patient started on cefepime IV. Admitted to hospitalist as per Dr. Snyder's recommendation. - Diagnoses Provider Diagnoses: UTI (urinary tract infection) Discharge ED - Sign-Out/Discharge Documenting (check all that apply): Patient Departure - Discharge Plan Condition: Stable Disposition: ADMITTED TO [facility] - Billing Disposition and Condition Condition: STABLE Disposition: Admitted to [facility] - Attestation Statements Provider Attestation: I have seen the patient with the MEKHI and agree with the plan and documentation below except as noted: this is a 73-year-old female with a history of nephrostomy tubes who presents with concern for infected tubes. Patient's prior cultures have grown out multiple bacteria resistant to multiple antibiotics. Patient was advised to get IV cefepime. Armando Logan MD
[2019-07-05 19:14] LABS: Hematocrit 24 % (35-47); Hemoglobin 8.6 g/dL (12.0-16.0); Mean Corpuscular HGB Conc 36 g/dL (31-36); Mean Corpuscular Hemoglobin 31 pg (27-31); Mean Corpuscular Volume 88 fL (80-97); Mean Platelet Volume 7.1 fL (7.4-10.4); Platelet Count 201 10^3/uL (150-450); Red Blood Count 2.76 10^6 /uL (3.70-4.87); Red Cell Distribution Width 17 % (10-15); White Blood Count 2.7 10^3/uL (3.5-10.8)
[2019-07-05] MEDS ORDERED: NS 0.9% 50 ML* 50 ML ONE (19:26)
[2019-07-05] MEDS ORDERED: Cefepime 2 GM in Dextrose(*) 2 GM/50 ML BAG IV ONE (19:30)
[2019-07-05 19:48] LABS: Albumin 3.6 g/dL (3.2-5.2); Albumin/Globulin Ratio 1.3 (1-3); BUN/Creatinine Ratio 15.2 (8-20); C Reactive Protein 85.06 mg/L (<8.01); Calcium 8.6 mg/dL (8.6-10.3); EGFR African American 38.6 (>60); EGFR Non-African American 31.9 (>60); Globulin 2.7 g/dL (2-4); Total Bilirubin 0.2 mg/dL (0.2-1.0); Total Protein 6.3 g/dL (6.4-8.9)
[2019-07-05 19:55] LABS: ABS Eosinophils 0.1 10^3/ul (0-0.6); ABS Lymphocytes 0.4 10^3/ul (1.0-4.8); ABS Monocytes 0.2 10^3/ul (0-0.8); Eosinophil % 4.5 %; Nucleated Red Blood Cells % 0.2
[2019-07-05] MEDS ORDERED: Acetaminophen TAB* 325 MG PO ONE (20:52)
[2019-07-05 21:30] LABS: Urine Appearance Cloudy; Urine Bacteria 1+ (Absent); Urine Bilirubin Negative (Negative); Urine Blood 3+ (Negative); Urine Glucose Negative (Negative); Urine Ketones Negative (Negative); Urine Nitrite Positive (Negative); Urine Protein 2+(100 mg/dL) (Negative); Urine Red Blood Cell 3+(>10/hpf) (Absent); Urine Specific Gravity 1.011 (1.010-1.030); Urine Urobilinogen Negative (Negative); Urine White Blood Cell 1+(6-10/hpf) (Absent)
[2019-07-05 21:31] LABS: Urine Color Red
[2019-07-05 21:36] LABS: Influenza A Molecular NEGATIVE (Negative); Influenza B Molecular NEGATIVE (Negative)
[2019-07-06] MEDS ORDERED: Ondansetron INJ* 2 MG/ML VIAL IV ONE (00:26)
[2019-07-06] MEDS ORDERED: Morphine 4 MG/ML VIAL (1 ml) 4 MG/ML VIAL IV ONE (00:26)
[2019-07-06] MEDS ORDERED: Ondansetron INJ* 2 MG/ML VIAL IV PRN (01:32)
--- NOTE | 2019-07-06 03:40 | HP ---
CC: Dr. Fidel Sommer; Dr. Kelly Cotter; Dr. Garcia. ADMISSION HISTORY AND PHYSICAL: DATE OF ADMISSION: 07/06/19 PRIMARY CARE PHYSICIAN: Dr. Nely Lund in [place]. Dr. Kelly Cotter locally will be her primary care physician, but she has not yet seen her. ONCOLOGIST: Dr. Fidel Sommer. UROLOGIST: Dr. Garcia. INFECTIOUS DISEASE: The patient has seen Dr. Swanson for Infectious Disease. CHIEF COMPLAINT: Generalized muscle aches and UTI symptoms. HISTORY OF PRESENT ILLNESS: This is a 73-year-old female with past medical history of non-Hodgkin's lymphoma, last chemotherapy was October 2018; history of breast cancer, status post lumpectomy, radiati on, and chemo; diabetes; dyslipidemia; history of congestive heart failure; and history of recurrent UTIs with most recent ulcers being positive for pseudomonas status post 2 weeks of IV cefepime, comes in again with symptoms of UTI. The patient has a history of bilateral nephrostomies which are llanes ed every 4 weeks at a hospital in [place], next change in about 10 days. The patient was in her [facility] state of health, but she started having generalized malaise and had a low-grade fever of 99 point something. She had a culture done recently which was still positive for Klebsiella oxytoca, Pseudomo sal aeruginosa, and Enterococcus faecalis in the urine. The culture was done on 07/02/19 and there w as a culture positivity for Tamika albicans in one of her urine from the left nephrostomy. She came in today to the ER as she was having some muscle cramps and bone pain which is her usual state of he alth before she started developing a full-blown UTI. Dr. Swanson apparently called the ER physician , recommended the patient to be admitted for IV cefepime infusions. As that was the plan initially e krish as an outpatient basis, but given that the patient has already arrived to the ER he recommended t he patient to be started on that. The patient offers some mild nausea as a complaint, but no vomiting . No diarrhea. She does have some mild diffuse abdominal pain. PAST MEDICAL HISTORY: As mentioned, non-Hodgkin's lymphoma; type 2 diabetes; hypertension; dyslipide [place]; history of left breast cancer, status post lumpectomy, lymph node dissection, radiation, and dorene mo; recently diagnosed shingles, was on valacyclovir. PAST SURGICAL HISTORY: Lumpectomy, appendectomy, chemo port placement on the right, tonsillectomy, a nd hysterectomy. MEDICATIONS: Home medications: The patient is currently on; 1. Wellbutrin 150 mg every morning. 2. Valtrex 500 mg oral daily. 3. Metformin 500 mg p.o. b.i.d. 4. Glipizide 10 mg p.o. b.i.d. 5. Protonix 40 mg every morning. 6. Metoprolol succinate 25 mg every morning. 7. Cozaar 25 mg every evening. 8. Amlodipine 2.5 mg every evening. 9. Crestor 40 mg every evening. ALLERGIES: The patient is allergic to PLASTIC TAPE which causes rash. FAMILY HISTORY: Noncontributory at her age. SOCIAL HISTORY: She had quite smoking in 1999, prior to that had a 60-pack year smoking, rarely drin ks any alcohol, denies any drug use. Currently retired, lives with her daughter and she has already signed a DNR/DNI since 2012. A new MOLST was signed last month which stated DNR/DNI and no feeding t ube placement and she states that she prefers her son-in-law could be her healthcare proxy as her aline ghters are too attached. REVIEW OF SYSTEMS: A 14-point review of systems did not reveal any information other than once in e HPI. PHYSICAL EXAMINATION GENERAL: The patient is awake, alert, and oriented x3. Did not appear to be in no acute distress. VITAL SIGNS: Temperature max noted to be 99.7, BP 107/52, heart rate 82, respiration rate 16, satura ting 97% on room air. HEAD AND NECK: Atraumatic and normocephalic. Bilateral pupils were reactive. Oral mucosa was moist. NECK: Supple. No jugular venous distention. LUNGS: Clear to auscultation bilaterally. No wheezing, rhonchi, or rales. HEART: S1 and S2. Regular rate and rhythm. ABDOMEN: Soft, nontender, and nondistended. There was some CVA tenderness on the nephrostomy sites on both sides. The right nephrostomy site was noted to be hematuric and red. The left side was giovanna r urine. EXTREMITIES: No cyanosis, clubbing, or edema. DIAGNOSTIC STUDIES/LABORATORY DATA: CBC was showing leukopenia with white count of 2.7; hemoglobin and hematocrit stable with hemoglobin of 8.6, which is slightly decreased compared to her baseline of 9.2 about a month ago. Platelet count was 201. Comprehensive metabolic panel was showing stable cr eatinine at 1.58. Random glucose minimally elevated at 180. C-reactive protein elevated at 85. Uri nalysis positive for nitrite and leuk esterase and red urine. Insulins A and B were both noted to be negative. Renal ultrasound was read as echogenic kidneys bilaterally with nodular surface counter. No hydronep hrosis on either side. A 9 mm calculus at the left pole of right kidney, right nephrostomy tube part ially visualized. IMPRESSION: 1. This is a 73-year-old female with recurrent urinary tract infections with bilateral nephrostomies , here with another episode of urinary tract infection with most recent culture being positive for mu ltiple bacteria including Klebsiella oxytoca, Pseudomonas aeruginosa, Enterococcus faecalis, and Cand leonor albicans. For now we will start the patient on cefepime, which the pseudomonas is sensitive to a nd consider ID consultation regarding the duration as this is her second recurrence of the UTI. 2. Chronic kidney disease stage 3, stable. 3. History of hypertension. I will restart home medication. 4. History of diabetes. We will hold metformin, but I am okay with the patient getting some glipizi de. We will also add fingerstick sliding scale with meals. 5. History of breast cancer and non-Hodgkin's lymphoma. 6. DVT prophylaxis with sequential compress ion device. No Lovenox or heparin in light of the patient's hematuria. 7. Code status. The patient is a DNR/DNI with her son-in-law being her health care proxy. [id number]/[facility] #: [id number]
[2019-07-06] MEDS ORDERED: Ibuprofen TAB* 200 MG PO ONE (04:00)
[2019-07-06] MEDS: Acetaminophen TAB* 325 MG PO PRN ×2 (04:33→19:34)
[2019-07-06] MEDS: NS 0.9% 1000 ML** 1,000 ML IV SCH ×2 (04:34→19:38)
[2019-07-06 04:37] LABS: Hematocrit 24 % (35-47); Hemoglobin 8.1 g/dL (12.0-16.0); Mean Corpuscular HGB Conc 33 g/dL (31-36); Mean Corpuscular Hemoglobin 29 pg (27-31); Mean Corpuscular Volume 88 fL (80-97); Mean Platelet Volume 7.2 fL (7.4-10.4); Platelet Count 171 10^3/uL (150-450); Red Blood Count 2.76 10^6 /uL (3.70-4.87); Red Cell Distribution Width 17 % (10-15); White Blood Count 2.3 10^3/uL (3.5-10.8)
[2019-07-06 04:58] LABS: ABS Eosinophils 0.1 10^3/ul (0-0.6); ABS Lymphocytes 0.4 10^3/ul (1.0-4.8); ABS Monocytes 0.1 10^3/ul (0-0.8); ABS Neutrophils 1.6 10^3/ul (1.5-7.7); Eosinophil % 4.5 %; Lymphocyte % 19.8 %
[2019-07-06 05:12] LABS: Calcium 7.5 mg/dL (8.6-10.3); EGFR African American 47.9 (>60); EGFR Non-African American 39.6 (>60); Potassium 3.5 mmol/L (3.5-5.0)
[2019-07-06] MEDS: Cefepime 1 GM in Dextrose(*) 1 GM/50 ML BAG IV SCH ×2 (08:09→20:35)
[2019-07-06] MEDS: Metoprolol Succinate XL TAB* 25 MG PO SCH (08:10)
[2019-07-06] MEDS: glipiZIDE TAB.XL* 5 MG PO SCH ×2 (08:10→20:35)
[2019-07-06] MEDS: buPROPion SR TAB.SR* 150 MG PO SCH (08:10)
[2019-07-06] MEDS: Pantoprazole TAB * 40 MG TAB PO SCH (08:11)
[2019-07-06] MEDS: Losartan TAB* 25 MG PO SCH (08:11)
[2019-07-06] MEDS: amLODIPine TAB* 5 MG PO SCH (19:36)
[2019-07-06] MEDS: Atorvastatin* 80 MG TAB PO SCH (20:35)
--- NOTE | 2019-07-06 23:49 | PN ---
Subjective Date of Service: 07/06/19 Interval History: no acute events. Tmax 99.7 Sleepy but resolved achiness that usually preceeds her more serious infections Scheduled to get next nephrostomy tube exchange with Dr. Juan Tirado of [facility] on 07/15/18. Follows with Dr. Myers of Infectious Disease there also. Splits time about [address] Objective Active Medications: Acetaminophen (Tylenol Tab*) 650 mg PO Q6H PRN PRN Reason: PAIN - MILD Last Admin: 07/06/19 19:34 Dose: 650 mg Amlodipine Besylate (Norvasc Tab*) 2.5 mg PO QPM [facility] Last Admin: 07/06/19 19:36 Dose: 2.5 mg Atorvastatin Calcium (Lipitor*) 80 mg PO BEDTIME [facility] Last Admin: 07/06/19 20:35 Dose: 80 mg Bupropion HCl (Wellbutrin Sr Tab*) 150 mg PO QAM [facility] Last Admin: 07/06/19 08:10 Dose: 150 mg Glipizide (Glucotrol Xl*) 10 mg PO BID [facility] Last Admin: 07/06/19 20:35 Dose: 10 mg Sodium Chloride (Ns 0.9% 1000 Ml) 1,000 mls @ 75 mls/hr IV PER RATE [facility] Last Admin: 07/06/19 19:38 Dose: 75 mls/hr Cefepime HCl (Maxipime 1 Gm In Dextrose Duplex (*)) 1 gm in 50 mls @ 100 mls/ hr IV Q12H [facility] Last Admin: 07/06/19 20:35 Dose: 100 mls/hr Losartan Potassium (Cozaar Tab*) 25 mg PO DAILY [facility] Last Admin: 07/06/19 08:11 Dose: 25 mg Metoprolol Succinate (Toprol Xl Tab*) 25 mg PO QAM [facility] Last Admin: 07/06/19 08:10 Dose: 25 mg Ondansetron HCl (Zofran Inj*) 4 mg IV Q4H PRN PRN Reason: NAUSEA/VOMITING Pantoprazole Sodium (Protonix Tab*) 40 mg PO QAM [facility] Last Admin: 07/06/19 08:11 Dose: 40 mg Vital Signs - 8 hr 07/06/19 07/06/19 16:14 20:13 Temperature 98.9 F 98.7 F Pulse Rate 73 73 Respiratory 18 18 Rate Blood Pressure 124/70 112/46 (mmHg) O2 Sat by Pulse 94 98 Oximetry Oxygen Devices in Use Now: None Appearance: NAD Eyes: No Scleral Icterus Ears/Nose/Mouth/Throat: NL Teeth, Lips, Gums Respiratory: Symmetrical Chest Expansion and Respiratory Effort Cardiovascular: NL Sounds; No Murmurs; No JVD Abdominal: NL Sounds; No Tenderness; No Distention Extremities: No Edema Skin: No Rash or Ulcers Neurological: Alert and Oriented x 3 Nutrition: Taking PO's Result Diagrams: 07/06/19 04:04 07/06/19 04:49 Additional Lab and Data: Laboratory Results - last 24 hr 07/06/19 07/06/19 07/06/19 04:04 04:49 07:17 WBC 2.3 L RBC 2.76 L Hgb 8.1 L Hct 24 L MCV 88 MCH 29 MCHC 33 RDW 17 H Plt Count 171 MPV 7.2 L Neut % (Auto) 68.9 Lymph % (Auto) 19.8 [place] % (Auto) 5.8 Eos % (Auto) 4.5 Baso % (Auto) 1.0 Absolute Neuts (auto) 1.6 Absolute Lymphs (auto) 0.4 L Absolute Monos (auto) 0.1 Absolute Eos (auto) 0.1 Absolute Basos (auto) 0.0 Absolute Nucleated RBC 0.0 Nucleated RBC % 0.0 Sodium 140 Potassium 3.5 Chloride 114 H Carbon Dioxide 20 L Anion Gap 6 BUN 21 Creatinine 1.31 H Est GFR ( Amer) 47.9 Est GFR (Non-Af Amer) 39.6 BUN/Creatinine Ratio 16.0 Glucose 124 H POC Glucose (mg/dL) 137 H Calcium 7.5 L 07/06/19 07/06/19 13:11 16:45 WBC RBC Hgb Hct MCV MCH MCHC RDW Plt Count MPV Neut % (Auto) Lymph % (Auto) [place] % (Auto) Eos % (Auto) Baso % (Auto) Absolute Neuts (auto) Absolute Lymphs (auto) Absolute Monos (auto) Absolute Eos (auto) Absolute Basos (auto) Absolute Nucleated RBC Nucleated RBC % Sodium Potassium Chloride Carbon Dioxide Anion Gap BUN Creatinine Est GFR ( Amer) Est GFR (Non-Af Amer) BUN/Creatinine Ratio Glucose POC Glucose (mg/dL) 152 H 203 H Calcium Microbiology and Other Data: Microbiology 07/05/19 18:59 Blood Venous Aerobic Blood Culture - Preliminary No Growth Day 1 07/05/19 18:59 Blood Venous Anaerobic Blood Culture - Preliminary No Growth Day 1 07/05/19 18:59 Blood Venous Aerobic Blood Culture - Preliminary No Growth Day 1 07/05/19 18:59 Blood Venous Anaerobic Blood Culture - Preliminary No Growth Day 1 Assess/Plan/Problems-Billing Assessment: 73 yo female PMH follicular lymphoma, b/l nephrostomy tubes p/w maliase, aches and recent UCx with Klebsiella Oxytoca, Entercoccus Faecalis, PSDA, Tamika Albicans, On Cefepime. - Continue Cefepime - follow-up ID recs - has 9mm stone on right on reneal US here and b/l stones on CT scan on . - Given recurrent Klebsiella on cultures and increasing frequency of infection, at risk for infected struvite stone from urease producing Klebsiella. May benefit from stone removal or destruction to break cycle. Consider adding macrobid or pcn to address the E Faecalis but will defer to ID who intitially recommended just the cefepime on admission. - follows with Dr. Juan Tirado, Interventional Radiologist at [facility].
[2019-07-07] MEDS ORDERED: Alteplase (CATHFLO)* 2 MG VIAL IV ONE (01:31)
[2019-07-07 06:50] LABS: BUN/Creatinine Ratio 13.9 (8-20); Calcium 6.6 mg/dL (8.6-10.3); Potassium 3.4 mmol/L (3.5-5.0)
[2019-07-07 07:31] LABS: ABS Eosinophils 0.1 10^3/ul (0-0.6); ABS Lymphocytes 0.2 10^3/ul (1.0-4.8); ABS Monocytes 0.1 10^3/ul (0-0.8); ABS Neutrophils 0.9 10^3/ul (1.5-7.7); Eosinophil % 6.6 %; Hematocrit 16 % (35-47); Lymphocyte % 18.8 %; Mean Corpuscular HGB Conc 33 g/dL (31-36); Mean Corpuscular Hemoglobin 30 pg (27-31); Mean Corpuscular Volume 92 fL (80-97); Mean Platelet Volume 7.3 fL (7.4-10.4); Nucleated Red Blood Cells % 0.2; Platelet Count 115 10^3/uL (150-450); Red Blood Count 1.72 10^6 /uL (3.70-4.87); Red Cell Distribution Width 17 % (10-15); White Blood Count 1.3 10^3/uL (3.5-10.8)
[2019-07-07 08:36] LABS: Hematocrit 24 % (35-47); Hemoglobin 8.1 g/dL (12.0-16.0); Mean Corpuscular HGB Conc 34 g/dL (31-36); Mean Corpuscular Hemoglobin 30 pg (27-31); Mean Corpuscular Volume 88 fL (80-97); Mean Platelet Volume 6.8 fL (7.4-10.4); Platelet Count 193 10^3/uL (150-450); Red Blood Count 2.76 10^6 /uL (3.70-4.87); Red Cell Distribution Width 17 % (10-15); White Blood Count 2.1 10^3/uL (3.5-10.8)
[2019-07-07 08:42] LABS: ABS Neutrophils 1.4 10^3/ul (1.5-7.7)
[2019-07-07 09:08] LABS: ABS Eosinophils 0.1 10^3/ul (0-0.6); ABS Lymphocytes 0.4 10^3/ul (1.0-4.8); ABS Monocytes 0.2 10^3/ul (0-0.8); Eosinophil % 6.4 %; Lymphocyte % 18.8 %; Nucleated Red Blood Cells % 0.1
[2019-07-07] MEDS ORDERED: Potassium Chloride* LIQUID 20 MEQ/15 ML UDC PO ONE (09:21)
[2019-07-07] MEDS: Cefepime 1 GM in Dextrose(*) 1 GM/50 ML BAG IV SCH ×2 (09:34→19:46)
[2019-07-07] MEDS: Metoprolol Succinate XL TAB* 25 MG PO SCH (09:35)
[2019-07-07] MEDS: glipiZIDE TAB.XL* 5 MG PO SCH ×2 (09:35→19:46)
[2019-07-07] MEDS: buPROPion SR TAB.SR* 150 MG PO SCH (09:36)
[2019-07-07] MEDS: Losartan TAB* 25 MG PO SCH (09:36)
[2019-07-07] MEDS: Pantoprazole TAB * 40 MG TAB PO SCH (09:36)
[2019-07-07] MEDS: Acetaminophen TAB* 325 MG PO PRN ×2 (11:34→21:21)
[2019-07-07] MEDS: NS 0.9% 1000 ML** 1,000 ML IV SCH (13:17)
--- NOTE | 2019-07-07 14:20 | PN ---
Subjective Date of Service: 07/07/19 Interval History: No acute events overnight. Afebrile. Did not sleep much at all. Denies fevers/chills, nausea, vomiting, abdominal pain, flank pain. Initial blood draw from port had low volume and spurious results upon recheck ( false hgb of 5.1) Objective Active Medications: Acetaminophen (Tylenol Tab*) 650 mg PO Q6H PRN PRN Reason: PAIN - MILD Last Admin: 07/07/19 11:34 Dose: 650 mg Amlodipine Besylate (Norvasc Tab*) 2.5 mg PO QPM [facility] Last Admin: 07/06/19 19:36 Dose: 2.5 mg Atorvastatin Calcium (Lipitor*) 80 mg PO BEDTIME [facility] Last Admin: 07/06/19 20:35 Dose: 80 mg Bupropion HCl (Wellbutrin Sr Tab*) 150 mg PO QAM [facility] Last Admin: 07/07/19 09:36 Dose: 150 mg Glipizide (Glucotrol Xl*) 10 mg PO BID [facility] Last Admin: 07/07/19 09:35 Dose: 10 mg Sodium Chloride (Ns 0.9% 1000 Ml) 1,000 mls @ 75 mls/hr IV PER RATE [facility] Last Admin: 07/07/19 13:17 Dose: 75 mls/hr Cefepime HCl (Maxipime 1 Gm In Dextrose Duplex (*)) 1 gm in 50 mls @ 100 mls/ hr IV Q12H [facility] Last Admin: 07/07/19 09:34 Dose: 100 mls/hr Losartan Potassium (Cozaar Tab*) 25 mg PO DAILY [facility] Last Admin: 07/07/19 09:36 Dose: 25 mg Metoprolol Succinate (Toprol Xl Tab*) 25 mg PO QAM [facility] Last Admin: 07/07/19 09:35 Dose: 25 mg Ondansetron HCl (Zofran Inj*) 4 mg IV Q4H PRN PRN Reason: NAUSEA/VOMITING Pantoprazole Sodium (Protonix Tab*) 40 mg PO QAM [facility] Last Admin: 07/07/19 09:36 Dose: 40 mg Vital Signs - 8 hr 07/07/19 07/07/19 07/07/19 07:18 07:39 11:52 Temperature 98.6 F 97.1 F Pulse Rate 79 69 Respiratory 18 18 20 Rate Blood Pressure 128/50 121/47 (mmHg) O2 Sat by Pulse 98 100 Oximetry Oxygen Devices in Use Now: None Appearance: NAD Eyes: No Scleral Icterus Ears/Nose/Mouth/Throat: NL Teeth, Lips, Gums Respiratory: Symmetrical Chest Expansion and Respiratory Effort, Clear to Auscultation Cardiovascular: NL Sounds; No Murmurs; No JVD, RRR Abdominal: NL Sounds; No Tenderness; No Distention, No Hepatosplenomegaly Extremities: No Edema Skin: No Rash or Ulcers Neurological: Alert and Oriented x 3 Nutrition: Taking PO's Result Diagrams: 07/07/19 08:31 07/07/19 06:15 Additional Lab and Data: Laboratory Results - last 24 hr 07/06/19 07/07/19 07/07/19 16:45 06:15 06:15 WBC 1.3 L RBC 1.72 L Hgb 5.1 L* Hct 16 L MCV 92 MCH 30 MCHC 33 RDW 17 H Plt Count 115 L MPV 7.3 L Neut % (Auto) 67.1 Lymph % (Auto) 18.8 [place] % (Auto) 6.1 Eos % (Auto) 6.6 Baso % (Auto) 1.4 Absolute Neuts (auto) 0.9 L* Absolute Lymphs (auto) 0.2 L Absolute Monos (auto) 0.1 Absolute Eos (auto) 0.1 Absolute Basos (auto) 0.0 Absolute Nucleated RBC 0.0 Nucleated RBC % 0.2 Hem Pathologist Commnt Cancelled Sodium 143 Potassium 3.4 L Chloride 119 H Carbon Dioxide 16 L Anion Gap 8 BUN 17 Creatinine 1.22 H Est GFR ( Amer) 52.0 Est GFR (Non-Af Amer) 43.0 BUN/Creatinine Ratio 13.9 Glucose 106 H POC Glucose (mg/dL) 203 H Calcium 6.6 L Blood Type Antibody Screen 07/07/19 07/07/19 07/07/19 08:31 08:31 09:35 WBC 2.1 L RBC 2.76 L Hgb 8.1 L Hct 24 L MCV 88 MCH 30 MCHC 34 RDW 17 H Plt Count 193 MPV 6.8 L Neut % (Auto) 66.3 Lymph % (Auto) 18.8 [place] % (Auto) 7.6 Eos % (Auto) 6.4 Baso % (Auto) 0.9 Absolute Neuts (auto) 1.4 L Absolute Lymphs (auto) 0.4 L Absolute Monos (auto) 0.2 Absolute Eos (auto) 0.1 Absolute Basos (auto) 0.0 Absolute Nucleated RBC 0.0 Nucleated RBC % 0.1 Hem Pathologist Commnt Sodium Potassium Chloride Carbon Dioxide Anion Gap BUN Creatinine Est GFR ( Amer) Est GFR (Non-Af Amer) BUN/Creatinine Ratio Glucose POC Glucose (mg/dL) 214 H Calcium Blood Type A Negative Antibody Screen Negative 07/07/19 13:26 WBC RBC Hgb Hct MCV MCH MCHC RDW Plt Count MPV Neut % (Auto) Lymph % (Auto) [place] % (Auto) Eos % (Auto) Baso % (Auto) Absolute Neuts (auto) Absolute Lymphs (auto) Absolute Monos (auto) Absolute Eos (auto) Absolute Basos (auto) Absolute Nucleated RBC Nucleated RBC % Hem Pathologist Commnt Sodium Potassium Chloride Carbon Dioxide Anion Gap BUN Creatinine Est GFR ( Amer) Est GFR (Non-Af Amer) BUN/Creatinine Ratio Glucose POC Glucose (mg/dL) 186 H Calcium Blood Type Antibody Screen Microbiology and Other Data: Microbiology 07/05/19 20:40 Urine Urine Culture - Preliminary Klebsiella Oxytoca Pseudomonas Aeruginosa Enterococcus Faecalis 07/05/19 18:59 Blood Venous Aerobic Blood Culture - Preliminary No Growth Day 1 07/05/19 18:59 Blood Venous Anaerobic Blood Culture - Preliminary No Growth Day 1 07/05/19 18:59 Blood Venous Aerobic Blood Culture - Preliminary No Growth Day 1 07/05/19 18:59 Blood Venous Anaerobic Blood Culture - Preliminary No Growth Day 1 Assess/Plan/Problems-Billing Assessment: 73 yo female PMH follicular lymphoma, b/l nephrostomy tubes p/w maliase, aches and recent UCx with Klebsiella Oxytoca, Entercoccus Faecalis, PSDA, Tamika Albicans, On Cefepime. - Patient Problems (1) UTI (urinary tract infection) Current Visit: No Status: Acute Comment: - Continue Cefepime - follow-up ID recs - outpatient UCxs with PSDA, Klebsiella, E Faecalis, Tamika - has 9mm stone on right on reneal US here and b/l stones on CT scan on . - Given recurrent Klebsiella on cultures and increasing frequency of infection, at risk for infected struvite stone from urease producing Klebsiella. May benefit from stone removal or destruction to break cycle. Consider adding macrobid or pcn to address the E Faecalis but will defer to ID who intitially recommended just the cefepime on admission. - follows with Dr. Juan Tirado, Interventional Radiologist at [facility]. - follows with Dr. Emerita Myers, [facility] [place], [place] when in [place] (2) Nephrolithiasis Current Visit: Yes Status: Acute Code(s): N20.0 - CALCULUS OF KIDNEY SNOMED Code(s): 96173431 Comment: - has 9mm stone on right on reneal US here and b/l stones on CT scan on 06/04/19. - Given recurrent Klebsiella on cultures and increasing frequency of infection, at risk for infected struvite stone from urease producing Klebsiella. May benefit from stone removal or destruction to break cycle. (3) Diabetes Current Visit: No Status: Acute Code(s): E11.9 - TYPE 2 DIABETES MELLITUS WITHOUT COMPLICATIONS SNOMED Code(s): 35782189 Comment: -Continue glipizide 10mg po BID. holding home metformin. A1C 6.1 06/02/19 (4) Hypertension Current Visit: No Status: Acute Code(s): I10 - ESSENTIAL (PRIMARY) HYPERTENSION SNOMED Code(s): 95293508 Comment: - controlled -Continue losartan 25, Metoprolol 25 mg, Amlodipine 2.5 mg (5) Leukocytopenia Current Visit: No Status: Acute Code(s): D72.819 - DECREASED WHITE BLOOD CELL COUNT, UNSPECIFIED SNOMED Code(s): 14161655 Comment: -has chronic low WBC -recently hospitalized in [facility] ICU in [place], [place] -ANC is 1.4, stable. -s/p chemotherapy for NHL- rituxan and bendamustin -monitor CBC auto diff while here -on cefepime which can rarely cause leukopenia (6) DVT prophylaxis Current Visit: No Status: Acute Code(s): Z29.9 - ENCOUNTER FOR PROPHYLACTIC MEASURES, UNSPECIFIED SNOMED Code(s): 970601944 Comment: -on scd (7) DNR (do not resuscitate) Current Visit: No Status: Acute Status and Disposition: medicine inpatient. Awaiting ID consult and possible home going IV antibiotics.
[2019-07-07 15:25] LABS: Hemoglobin 5.1 g/dL (12.0-16.0)
[2019-07-07] MEDS: amLODIPine TAB* 5 MG PO SCH (19:20)
[2019-07-07] MEDS: Atorvastatin* 80 MG TAB PO SCH (19:46)
[2019-07-08] MEDS: NS 0.9% 1000 ML** 1,000 ML IV SCH (03:17)
[2019-07-08 06:46] LABS: Hematocrit 25 % (35-47); Hemoglobin 8.3 g/dL (12.0-16.0); Mean Corpuscular HGB Conc 34 g/dL (31-36); Mean Corpuscular Hemoglobin 29 pg (27-31); Mean Corpuscular Volume 88 fL (80-97); Mean Platelet Volume 7.1 fL (7.4-10.4); Platelet Count 200 10^3/uL (150-450); Red Blood Count 2.81 10^6 /uL (3.70-4.87); Red Cell Distribution Width 17 % (10-15); White Blood Count 2.2 10^3/uL (3.5-10.8)
[2019-07-08 07:06] LABS: ABS Eosinophils 0.1 10^3/ul (0-0.6); ABS Lymphocytes 0.4 10^3/ul (1.0-4.8); ABS Monocytes 0.2 10^3/ul (0-0.8); ABS Neutrophils 1.4 10^3/ul (1.5-7.7); Eosinophil % 6.8 %; Lymphocyte % 19.4 %; Nucleated Red Blood Cells % 0.1
[2019-07-08 07:28] LABS: Anion Gap 8 mmol/L (2-11); BUN/Creatinine Ratio 12.6 (8-20); Blood Urea Nitrogen 18 mg/dL (6-24); CO2 Carbon Dioxide 19 mmol/L (22-32); Calcium 8.4 mg/dL (8.6-10.3); Chloride 116 mmol/L (101-111); EGFR African American 43.3 (>60); EGFR Non-African American 35.8 (>60); Glucose 122 mg/dL (70-100); Potassium 3.4 mmol/L (3.5-5.0); Sodium 143 mmol/L (135-145)
[2019-07-08 07:29] LABS: % Iron Saturation 9 % (15-55); Iron 24 ug/dL (50-212); Total Iron Binding Capacity 276 mcg/dL (250-450); Transferrin 197 mg/dL (203-362)
[2019-07-08] MEDS: Cefepime 1 GM in Dextrose(*) 1 GM/50 ML BAG IV SCH (07:45)
[2019-07-08 07:50] LABS: Ferritin 27.8 ng/mL (11-307)
[2019-07-08] MEDS ORDERED: Ferrous Gluconate TAB* 324 MG TAB PO SCH (09:00)
[2019-07-08] MEDS: buPROPion SR TAB.SR* 150 MG PO SCH (10:01)
[2019-07-08] MEDS: Metoprolol Succinate XL TAB* 25 MG PO SCH (10:01)
[2019-07-08] MEDS: Losartan TAB* 25 MG PO SCH (10:01)
[2019-07-08] MEDS: Acetaminophen TAB* 325 MG PO PRN (10:01)
[2019-07-08] MEDS: glipiZIDE TAB.XL* 5 MG PO SCH (10:01)
[2019-07-08] MEDS: Pantoprazole TAB * 40 MG TAB PO SCH (10:02)
--- NOTE | 2019-07-08 12:03 | CONS ---
CONSULTATION REPORT: DATE OF CONSULT: 07/08/19 REQUESTING PHYSICIAN: Dr. Irving. CONSULTING SERVICE: Infectious Disease. REASON FOR CONSULT: Urinary tract infection. IMPRESSION: 1. Polymicrobial urinary tract infection in the setting of bilateral nephrostomy tubes, recurrent. 2. Status post bilateral nephrostomy tube placement about 6 years ago, replaced every month in [place]. They were placed originally for hydronephrosis due to bulky lymph nodes in the setting of lymphoma, which has been treated and last chemo was about 3 months ago, although it did include Rituxan, so her immunosuppression persists. 3. Type 2 diabetes. 4. Right chest port. RECOMMENDATIONS: Cefepime 1 g IV every 12 hours through Monday [facility] and then she will be going to [place] to get her tubes changed out. She will have preoperative cefepime there. I discussed with her and her daughters that she almost always has 3 organisms grow, klebsiella, pseudomonas, enterococcus. The klebsiella and enterococcus are sensitive to Levaquin, cefepime is resistant. Another consideration given the patient has a prodrome before she develops infection is to have Levaquin on hand at home and see if she improves or not and if she does she may avoid hospitalization. In that case , I would ask her to start Levaquin and call me if she aims do that so that we could also work on getting outpatient IV antibiotics set up to possibly avoid hospitalization. We also discussed that she has nephrolithiasis and on ultrasound here she has a 9 mm calculus at the right lower pole of the kidney, which could be a nidus or recurrence of infection. She should follow up with Urology to see if lithotripsy or extraction is an option. HISTORY OF PRESENT ILLNESS: This is a 73-year-old woman with bilateral nephrostomy tubes which are chronic, with recurrent urinary tract infection, who last week developed fevers, chills, achiness; had an outpatient urine culture ordered by her doctors in [place], it was done here and grew klebsiella , pseudomonas, and enterococcus which is what she has often grown and in fact pseudomonas is almost always present, though back in 2017 she had grown acinetobacter and enterobacter, which seemed to be gone. She came into the hospital on 07/05/19 because of ongoing symptoms. She had a low-grade temp of 37.6. She has been stable. She was started on cefepime. She is overall feeling better. Her culture were repeated here showing the same organisms. Her blood cultures are negative. She feels well and is going to have her nephrostomy tubes changed out on Monday in [place], she will fly down that morning. She does not want to have her tubes changed here at this point. PAST MEDICAL HISTORY: 1. Non-Hodgkin's lymphoma, last treatment about 3 months ago via right chest port. 2. Bilateral hydronephrosis, status post bilateral nephrostomy tubes. 3. Type 2 diabetes. 4. Hypertension. 5. Hyperlipidemia. 6. Left breast cancer, status post lumpectomy. 7. Left chest radiation and chemotherapy. 8. Shingles. PAST SURGICAL HISTORY: 1. Status post appendectomy. 2. Status post tonsillectomy. 3. Status post hysterectomy. ALLERGIES: PLASTIC TAPE caused rash. MEDICATIONS: 1. Tylenol. 2. Amlodipine. 3. Atorvastatin. 4. Bupropion. 5. Cefepime 1 g IV every 12 hours. 6. Ferrous gluconate. 7. Losartan. 8. Metoprolol. 9. Pantoprazole. 10. Potassium. SOCIAL HISTORY: She lives part-time in [place], part-time in [place]. She is a nonsmoker and quit in 1999. She is retired. FAMILY HISTORY: No recurrent infections. REVIEW OF SYSTEMS: All negative except as noted above in the history of present illness to a 14-point review. PHYSICAL EXAM: Vital Signs: Temperature is 36.3, heart rate 67, respiratory rate 16, blood pressure 128/47, oxygen saturation 98% on room air. In general, she is awake, not in distress. Neurologic: She is oriented x3. Follows all commands. HEENT: There is no conjunctival hemorrhage. Oropharynx without lesions. Neck is supple without mass. Heart is regular rate and rhythm without murmurs, rubs, or gallops. Lungs are clear to auscultation bilaterally. Abdomen: Soft, nontender, nondistended. There is no flank tenderness to palpation. There are bilateral nephrostomy tubes without surrounding erythema. Skin: There is no rash or splinter hemorrhage. Musculoskeletal: There is no spine tenderness to palpation. LABORATORY DATA: White blood cell count 2.2, hemoglobin 8, platelets 200. Creatinine 1.4. Please see impression and recommendations outlined above, which I have discussed with the patient, her family, and Dr. Irving. Thanks for asking me to see Ms. Tejeda in consultation. [id number] #: [id number] ARIELLE
[2019-07-08] MEDS ORDERED: Cefepime 1 GM in Dextrose(*) 1 GM/50 ML BAG IV ONE (15:00)
[2019-07-08 17:04] VITALS: BP 117/43
== END 2019-07-08 16:45 | disposition home or self-care (01) | DRG 690 ==
LOC: ED 16:44 → MED 07-06 01:26
PROVIDERS: ADMIT Internal Medicine; ATTEND Internal Medicine
DX: N39.0 Urinary tract infection, site not specified (principal); C85.90 Non-Hodgkin lymphoma, unspecified, unspecified site; B96.5 Pseudomonas (aeruginosa) (mallei) (pseudomallei) as the cause of diseases classified elsewhere; E11.22 Type 2 diabetes mellitus with diabetic chronic kidney disease; I12.9 Hypertensive chronic kidney disease with stage 1 through stage 4 chronic kidney disease, or unspecified chronic kidney disease; N18.3 Chronic kidney disease, stage 3 (moderate); B95.2 Enterococcus as the cause of diseases classified elsewhere; B96.1 Klebsiella pneumoniae [K. pneumoniae] as the cause of diseases classified elsewhere; N20.0 Calculus of kidney; D72.819 Decreased white blood cell count, unspecified; Z66 Do not resuscitate; E78.5 Hyperlipidemia, unspecified; Z85.3 Personal history of malignant neoplasm of breast; Z92.21 Personal history of antineoplastic chemotherapy; Z92.3 Personal history of irradiation; Z79.84 Long term (current) use of oral hypoglycemic drugs; Z79.899 Other long term (current) drug therapy; Z91.048 Other nonmedicinal substance allergy status; Z87.891 Personal history of nicotine dependence; Z93.6 Other artificial openings of urinary tract status
CPT/HCPCS: 36415; 76775; 80048; 80053; 81003; 81015; 82728; 83540; 83550; 83605; 83690; 85025; 86140; 86850; 86900; 86901; 87040; 87077; 87086; 87186; 96365; 99285; A9270-GY; J0692; J2270; J2405

== ENCOUNTER 2020-10-16 17:07 | Inpatient (IN) ==
[2020-10-16 20:54] LABS: Hematocrit 30 % (35-47); Hemoglobin 9.9 g/dL (12.0-16.0); Mean Corpuscular HGB Conc 33 g/dL (31-36); Mean Corpuscular Hemoglobin 29 pg (27-31); Mean Corpuscular Volume 89 fL (80-97); Mean Platelet Volume 8.6 fL (7.4-10.4); Platelet Count 165 10^3/uL (150-450); Red Blood Count 3.38 10^6 /uL (3.70-4.87); Red Cell Distribution Width 17 % (10-15); White Blood Count 2.7 10^3/uL (3.5-10.8)
[2020-10-16 20:59] LABS: ABS Eosinophils 0.1 10^3/ul (0-0.6); ABS Lymphocytes 0.2 10^3/ul (1.0-4.8); ABS Monocytes 0.2 10^3/ul (0-0.8); ABS Neutrophils 2.1 10^3/ul (1.5-7.7); Eosinophil % 4.9 %; Lymphocyte % 8.7 %
[2020-10-16 21:06] LABS: ALT 19 U/L (7-52); AST 43 U/L (13-39); Albumin 3.6 g/dL (3.2-5.2); Albumin/Globulin Ratio 1.6 (1-3); Alkaline Phosphatase 246 U/L (34-104); Anion Gap 8 mmol/L (2-11); BUN/Creatinine Ratio 19.5 (8-20); Blood Urea Nitrogen 26 mg/dL (6-24); C Reactive Protein 21.17 mg/L (<8.01); CO2 Carbon Dioxide 21 mmol/L (22-32); Calcium 8.5 mg/dL (8.6-10.3); Chloride 111 mmol/L (101-111); Creatine Kinase 39 U/L (10-223); EGFR African American 46.8 (>60); EGFR Non-African American 38.7 (>60); Globulin 2.3 g/dL (2-4); Glucose 264 mg/dL (70-100); Potassium 3.9 mmol/L (3.5-5.0); Sodium 140 mmol/L (135-145); Total Protein 5.9 g/dL (6.4-8.9)
[2020-10-16 21:09] LABS: Troponin I 0.05 ng/mL (<0.03)
[2020-10-16] MEDS ORDERED: Furosemide 20 mg/2 ml IV VIAL IV SLOW PU ONE (21:56)
[2020-10-16] MEDS ORDERED: Furosemide 40 mg/4 ml IV VIAL IV ONE (23:58)
[2020-10-17 01:38] LABS: Urine Appearance Clear; Urine Bilirubin Negative (Negative); Urine Blood 3+ (Negative); Urine Color Straw; Urine Glucose 1+(50 mg/dL) (Negative); Urine Glucose Negative (Negative); Urine Ketones Negative (Negative); Urine Nitrite Negative (Negative); Urine Protein 2+(100 mg/dL) (Negative); Urine Protein Negative (Negative); Urine Specific Gravity 1.002 (1.002-1.030); Urine Specific Gravity 1.004 (1.002-1.030); Urine Urobilinogen Negative (Negative)
[2020-10-17 01:48] LABS: Urine Bacteria Absent (Absent); Urine Red Blood Cell 1+(3-5/hpf) (Absent); Urine Red Blood Cell 3+(>10/hpf) (Absent); Urine Squamous Epithelial Cell Present (Absent); Urine White Blood Cell 1+(6-10/hpf) (Absent); Urine White Blood Cell 3+(>20/hpf) (Absent)
[2020-10-17 01:50] LABS: Urine Color Red
[2020-10-17] MEDS ORDERED: Dextrose 50% Syringe 50 ml 25 GM/50 ML SYRINGE IV PUSH PRN (03:07)
[2020-10-17] MEDS: Enoxaparin 40 MG/0.4 ML SYR SUBCUT SCH (03:52)
[2020-10-17 04:40] LABS: Influenza A Molecular Negative (Negative); Influenza B Molecular Negative (Negative)
[2020-10-17 09:00] LABS: Anion Gap 9 mmol/L (2-11); BUN/Creatinine Ratio 21.8 (8-20); Blood Urea Nitrogen 29 mg/dL (6-24); CO2 Carbon Dioxide 22 mmol/L (22-32); Calcium 8.5 mg/dL (8.6-10.3); Chloride 108 mmol/L (101-111); EGFR African American 46.8 (>60); EGFR Non-African American 38.7 (>60); Glucose 222 mg/dL (70-100); Magnesium 1.9 mg/dL (1.9-2.7); Potassium 3.7 mmol/L (3.5-5.0); Sodium 139 mmol/L (135-145)
[2020-10-17 09:11] LABS: Troponin I 0.06 ng/mL (<0.03)
[2020-10-17 09:14] LABS: Hematocrit 32 % (35-47); Hemoglobin 10.5 g/dL (12.0-16.0); Mean Corpuscular HGB Conc 33 g/dL (31-36); Mean Corpuscular Hemoglobin 29 pg (27-31); Mean Corpuscular Volume 89 fL (80-97); Mean Platelet Volume 8.4 fL (7.4-10.4); Platelet Count 216 10^3/uL (150-450); Red Blood Count 3.63 10^6 /uL (3.70-4.87); Red Cell Distribution Width 17 % (10-15); White Blood Count 3.6 10^3/uL (3.5-10.8)
[2020-10-17] MEDS ORDERED: NS 0.9% 500 ml BAG 500 ML IV SCH (11:00)
[2020-10-17 12:13] LABS: ABS Eosinophils 0.2 10^3/ul (0-0.6); ABS Lymphocytes 0.3 10^3/ul (1.0-4.8); ABS Monocytes 0.2 10^3/ul (0-0.8); ABS Neutrophils 2.9 10^3/ul (1.5-7.7); Eosinophil % 6.3 %; Lymphocyte % 8.7 %
[2020-10-17] MEDS ORDERED: Iodixanol (CONTRAST) 320 MG/ML 100 ML SDV IV SCH (12:22)
[2020-10-17] MEDS ORDERED: Insulin GLARGINE 100 un/ml 10 ml VIAL SUBCUT ONE (23:56)
[2020-10-18 08:02] LABS: % Iron Saturation 18 % (15-55); Iron 52 ug/dL (50-212); Total Iron Binding Capacity 287 mcg/dL (250-450); Transferrin 205 mg/dL (203-362); Unsaturated Iron Binding < 272 ug/dL
[2020-10-18 08:22] LABS: Ferritin 24.8 ng/mL (11-307)
[2020-10-18] MEDS: Enoxaparin 40 MG/0.4 ML SYR SUBCUT SCH (09:01)
[2020-10-19 10:15] LABS: INR 1.12 (0.82-1.09)
[2020-10-19] MEDS ORDERED: fentaNYL 100 mcg/2 ml 50 MCG/ML VIAL ONE (13:55)
[2020-10-19] MEDS ORDERED: Furosemide 20 mg/2 ml IV VIAL IV SLOW PU ONE (15:31)
[2020-10-19 15:37] VITALS: BP 114/48
[2020-11-18 10:46] LABS: LNGPR Tissue ID CN21-540-B
== END 2020-10-19 18:15 | disposition home or self-care (01) | DRG 291 ==
LOC: ED 17:07 → MEDTELE 23:53
PROVIDERS: ADMIT Hospitalist; ATTEND Internal Medicine